=== PATIENT | female | born 1975 | race African-American/Black ===

== ENCOUNTER 2020-03-08 21:28 | Emergency (ER) | payer OTHER, SELFPAY ==
--- OUTSIDE RECORDS SUMMARY | 2020-03-08 21:31 | XMS REPORT | Clinical Summary ---
:1975 Author Organization [facility] Address [address] [place] [address] Care Team Providers Name Role Phone Unavailable Primary Care Provider Unavailable Allergies Active Allergy Reactions Severity Noted Date Comments Penicillins Rash Low 05/06/2018 Vancomycin Analogues Rash High 05/06/2018 Medications Medication Sig Dispensed Refills Start Date End Date Status lisinopril Take 20 mg by mouth 0 Active (PRINIVIL,ZESTRIL) daily. 20 MG tablet cyanocobalamin INJECT 1 ML 11 04/15/2018 Ac tive (VITAMIN B-12) 1,000 INTRAMUSCULARLY 1 mcg/mL injection TIME EVERY MONTH insulin NPH (HUMULIN Inject 20 Units 10 mL 0 05/07/2018 Active N) 100 unit/mL subcutaneously every injection morning Use as directed . Active Problems Problem Noted Date Drug overdose 05/06/2018 Social History Tobacco Use Types Packs/Day Years Used Date Never Smoker Smokeless Tobacco: Never Used Alcohol Use Drinks/Week oz/Week Comments Yes occassionally Sex Assigned at Date Recorded Not on file Last Filed Vital Signs Not on file Plan of Treatment Health Maintenance Due Date Last Done Comments CERVICAL CANCER SCREENING PAP ONLY (Age 0811/11/1995 21-65) LIPID PANEL 11/11/2019 INFLUENZA VACCINE (#1) 2019 01/29/2018, 03/18/2017 Results Not on fileafter 03/08/2019 Advance Directives For more information, please contact: [phone] Code Status Date Activated Date Inactivated Comments Full Code 05/06/2018 9:19 PM This code status was determined by: Patient
--- OUTSIDE RECORDS SUMMARY | 2020-03-08 21:32 | XMS REPORT | Continuity of Care Document ---
:1975 Author Organization [facility] t Address [address] [place] [address] Care Team Providers Name Role Phone JOYCE CAMPBELL Attending Clinician Unavailable JOYCE CAMPBELL Admitting Clinician Unavailable Problems Condition Condition Condition Status Onset Resolution Last Treating Co mments Source Name Details Category Date Date Treatment Clinician Date Drug Drug Disease Active [facility] Allergies, Adverse Reactions, Alerts Allergy Allergy Status Severity Reaction(s) Onset Inactive Treating Comm ents Source Name Type Date Date Clinician Penicill Propensi Active Rash [facility] - adverse 00:00: Medical reaction 00 Gar[facility] s Vancomyc Propensi Active Rash [facility] - Analogue adverse 00:00: Medical s reaction 00 Center s Social History Social Habit Start Date Stop Date Quantity Comments Source Sex Assigned At [facility] Tobacco use and 2018-05-06 2018-05-06 Never used [facility] exposure 00:00:00 00:00:00 [facility] Alcohol intake 2018-05-06 2018-05-06 [facility] - 00:[facility]00 00:00:00 alcohol (finding) [facility] Alcohol Comment 2018-05-06 2018-05-[address] [facility] - 00:00:00 00:00:00 [facility] Smoking Status Start Date Stop Date Source Never smoker [facility] Medications Ordered Filled Start Stop Current Ordering Indication Dosage Frequency Signature Comments Components Source Medication Medication Date Date Medication? Clinician (SIG) Name Name lisinopril 2019-0 Yes 20mg QD Take [address] (PRINIVIL,Z 2-01 by mouth [facility] - ESTRIL) 20 02:55: daily. Medic al MG tablet Center insulin NPH Yes 20U QD Inject [address] (HUMULIN N) 1-31 Units [facility] - 100 unit/mL 00:00: subcutaneo Medical injection 00 usly every Cent er morning Use as directed . cyanocobala Yes INJECT [address] min 1-09 ML [facility] - (VITAMIN 00:00: INTRAMUSCU Med ical B-12) 1,000 00 LARLY 1 Cente r mcg/mL TIME EVERY injection MONTH Procedures This patient has no known procedures. Plan of Care Planned Activity Planned Date Details Comments Source Future Scheduled 2019-12-[address] [facility] - Test 00:00:00 (#1) [code = [facility] INFLUENZA VACCINE (#1)] Future Scheduled 2019-11-[address] [facility] - Test 00:00:00 (procedure) [code = [facility] [id number]] Future Scheduled 1995-11-[address] [facility] [facility] - Test 00:00:00 malignant neoplasm Medical C enter of cervix (procedure) [code = 414076311] Results Test Description Test Time Test Comments Results Result Comments Source PROTEIN ELECTROPHORESIS, SERUM 2018-05-08 15:56:00 Test Item Value Reference Range Interpretation Comme nts ALBUMIN FRACTION (BEAKER) (test code 3.1 g/dL 3.5-5.5 L = 405) ALPHA 1 FRACTION (BEAKER) (test code 0.2 g/dL 0.2-0.4 = 389) ALPHA 2 FRACTION (BEAKER) (test code 0.8 g/dL 0.5-0.9 = 390) BETA FRACTION (BEAKER) (test code = 1.1 g/dL 0.6-1.1 392) GAMMA GLOBULIN FRACTION (BEAKER) 1.9 g/dL 0.7-1.7 H (test code = 391) INTERPRETATION-119 (BEAKER) (test Slight decrease in albumin. Small code = 2611) polyclonal elevation of gamma globulins, suggesting a component of chronic inflammation. No monoclonal bands detected. [id number] (BEAKER) (test Viviane Zuluaga MD (electro ayaka code = 2616) signature) PROTEIN TOTAL SERUM, SPEP ([facility]) 7.1 gm/dL 6.0-8.3 (test code = 2660) POCT-GLUCOSE [id number] 21:51:00 Test Item Value Reference Range Interpretation Comments POC-GLUCOSE METER 108 mg/dL 70-110 TESTED AT [facility] [address] ([facility]) (test code = [address] [place] 1538) [id number] POCT-GLUCOSE [id number] 18:23:00 Test Item Value Reference Range Interpretation Comments POC-GLUCOSE METER 117 mg/dL 70-110 H TESTED AT [facility] [address] ([facility]) (test code = [address] [place] 1538) [id number] EEG AWAKE AND [id number] 14:13:00Reason for exam:->new onset seizureShould this be performed at the bedside?->YesDATE OF REPORT: 05/07/2018NAME: Israel GonzalezMRN: [id number] of : 1975ACC: [id number]: [id number] time: 9:17Stop time: 9:39ICD-10: R56.9 CPT Code: 76927 HISTORY: Israel Gonzalez is a 42 y.o. female with history of prior drug overdose, DM, HTN, s/p episode of generalized shaking x 1 minute MEDICATIONS THAT COULD AFFECT EEG: None TECHNICAL SUMMARY: This is a digital EEG recorded with 32 input channels on a Carbon Digital system, reviewed with bipolar and referential montages using the modified combinatorial system nomenclature. DESCRIPTION OF RECORD: During the maximally alert state, a 9-10 Hz posterior dominant rhythm was seen that was symmetric, reactive to eye opening and well regulated. More anteriorly, low voltage frontocentral beta predominated. Drowsiness was characterized byalpha attenuation and increased frontocentral theta. Stage 2 sleep was reached characterized by symmetric sleep spindles. HV: Hyperventilation was performed for 3 minutes with good effort. No changewas seen with HV. PHOTIC STIMULATION: Photic stimulation was done from 3-18 Hz; photoparoxysmal responses were absent. ELECTROCARDIOGRAM: EKG tracing reviewed, showing normal sinus rhythm with occasional PVC's. IMPRESSION: Normal awake and asleep EEG CLINICAL CORRELATION: An EEG without epileptiform discharges does not exclude the possibility of epilepsy. If the clinical suspicion of epilepsy remains, consider additional EEG recordings. Brianda Dang MD, PhDEpilepsy Fellow Attending note: I reviewed this EEG record and I agree with the details of this report.Jessica Rich MD, PhDAttending Neur ophysiologistDublin, [place] POCT- GLUCOSE [id number] 12:34:00 Test Item Value Reference Range Interpretation Comments POC-GLUCOSE METER 129 mg/dL 70-110 H TESTED AT [facility] [address] (BEAKER) (test code = [facility] 1538) [id number] POCT-GLUCOSE [id number] 08:39:00 Test Item Value Reference Range Interpretation Comments POC-GLUCOSE METER 161 mg/dL 70-110 H TESTED AT [facility] [address] (BEAKER) (test code = [facility] 1538) [id number] HEMOGLOBIN [id number] 07:52:00 Test Item Value Reference Range Interpretation Comments HEMOGLOBIN A1C (BEAKER) (test code = 5.5 % 4.3-6.1 368) ACETAMINOPHEN [id number] 04:37:00 Test Item Value Reference Range Interpretation Comments ACETAMINOPHEN LEVEL (BEAKER) (test < ug/mL 10.0-30.0 L code = 344) Therapeutic Range: 10.0-30.0 g/mLToxic Levels: >200.0 g/mLPROTHROMBIN [id number] 04:32:00 Test Item Value Reference Range Interpretation Comments PROTIME (BEAKER) (test code = 14.1 seconds 11.7-14.7 759) INR (BEAKER) (test code = 370) 1.1 <=5.9 RECOMMENDED COUMADIN/WARFARIN INR THERAPY RANGESSTANDARD DOSE: 2.0 - 3.0 Includes: PROPHYLAXIS forvenous thrombosis, systemic embolization; TREATMENT for venous thrombosis and/or pulmonary embolus.HIGH RISK: Target INR is 2.5-3.5 for patients with mechanical heart valves.BASIC METABOLIC [id number] 04:29:00 Test Item Value Reference Range Interpretation Comments SODIUM (BEAKER) 137 meq/L 136-145 (test code = 381) POTASSIUM (BEAKER) 3.4 meq/L 3.5-5.1 L (test code = 379) CHLORIDE (BEAKER) 106 meq/L 98-107 (test code = 382) CO2 (BEAKER) (test 23 meq/L 22-29 code = 355) BLOOD UREA NITROGEN 6 mg/dL 7-21 L (BEAKER) (test code = 354) CREATININE (BEAKER) 0.67 mg/dL 0.57-1.25 (test code = 358) GLUCOSE RANDOM 188 mg/dL 70-105 H (BEAKER) (test code = 652) CALCIUM (BEAKER) 9.2 mg/dL 8.4-10.2 (test code = 697) EGFR (BEAKER) (test mL/min/1.73 INSUFFIC IENT CLINICAL code = 1092) sq m DATA TO CALCULA TE ESTIMATED GFR. [id number] 04:28:00 Test Item Value Reference Range Interpretation Comments PHOSPHORUS (BEAKER) (test code = 2.4 mg/dL 2.3-4.7 604) [id number] 04:28:00 Test Item Value Reference Range Interpretation Comments MAGNESIUM (BEAKER) (test code = 2.0 mg/dL 1.6-2.6 627) HEPATIC FUNCTION [id number] 04:28:00 Test Item Value Reference Range Interpretation Comments TOTAL PROTEIN (BEAKER) (test code = 7.5 gm/dL 6.0-8.3 770) ALBUMIN (BEAKER) (test code = 1145) 3.7 g/dL 3.5-5.0 BILIRUBIN TOTAL (BEAKER) (test code 0.5 mg/dL 0.2-1.2 = 377) BILIRUBIN DIRECT (BEAKER) (test 0.2 mg/dL 0.1-0.5 code = 706) ALKALINE PHOSPHATASE (BEAKER) (test 69 U/L 40-150 code = 346) AST (SGOT) (BEAKER) (test code = 7 U/L 5-34 353) ALT (SGPT) (BEAKER) (test code = 7 U/L 6-55 347) CBC W/PLT COUNT & AUTO [id number] 04:15:00 Test Item Value Reference Range Interpretation Comments WHITE BLOOD CELL COUNT (BEAKER) 9.8 K/ L 3.5-10.5 (test code = 775) RED BLOOD CELL COUNT (BEAKER) 4.33 M/ L 3.93-5.22 (test code = 761) HEMOGLOBIN (BEAKER) (test code = 11.1 GM/DL 11.2-15.7 L 410) HEMATOCRIT (BEAKER) (test code = 32.5 % 34.1-44.9 L 411) MEAN CORPUSCULAR VOLUME (BEAKER) 75.1 fL 79.4-94.8 L (test code = 753) MEAN CORPUSCULAR HEMOGLOBIN 25.6 pg 25.6-32.2 (BEAKER) (test code = 751) MEAN CORPUSCULAR HEMOGLOBIN CONC 34.2 GM/DL 32.2-35.5 (BEAKER) (test code = 752) RED CELL DISTRIBUTION WIDTH 17.7 % 11.7-14.4 H (BEAKER) (test code = 412) PLATELET COUNT (BEAKER) (test 321 K/CU MM 150-450 code = 756) MEAN PLATELET VOLUME (BEAKER) 10.8 fL 9.4-12.3 (test code = 754) NUCLEATED RED BLOOD CELLS 0 /100 WBC 0-0 (BEAKER) (test code = 413) NEUTROPHILS RELATIVE PERCENT 71 % (BEAKER) (test code = 429) LYMPHOCYTES RELATIVE PERCENT 18 % (BEAKER) (test code = 430) MONOCYTES RELATIVE PERCENT 10 % (BEAKER) (test code = 431) EOSINOPHILS RELATIVE PERCENT 1 % (BEAKER) (test code = 432) BASOPHILS RELATIVE PERCENT 0 % (BEAKER) (test code = 437) NEUTROPHILS ABSOLUTE COUNT 6.98 K/ L 1.56-6.13 H (BEAKER) (test code = 670) LYMPHOCYTES ABSOLUTE COUNT 1.75 K/ L 1.18-3.74 (BEAKER) (test code = 414) MONOCYTES ABSOLUTE COUNT (BEAKER) 0.95 K/ L 0.24-0.36 H (test code = 415) EOSINOPHILS ABSOLUTE COUNT 0.07 K/ L 0.04-0.36 (BEAKER) (test code = 416) BASOPHILS ABSOLUTE COUNT (BEAKER) 0.03 K/ L 0.01-0.08 (test code = 417) IMMATURE GRANULOCYTES-RELATIVE 0 % 0-1 PERCENT (BEAKER) (test code = 2801) RAPID DRUG SCREEN, [id number] 00:32:00 Test Item Value Reference Range Interpretation Comments BARBITURATE URINE (BEAKER) (test Negative Negative code = 725) BENZODIAZEPINE SCREEN URINE (BEAKER) Negative Negative (test code = 726) COCAINE (METAB.) SCREEN (BEAKER) Negative Negative (test code = 1164) METHADONE SCREEN (BEAKER) (test code Negative Negative = 1436) OPIATE SCREEN URINE (BEAKER) (test Negative Negative code = 734) CANNABINOID SCREEN URINE (BEAKER) Negative Negative (test code = 727) AMPH/METHAMPH SCREEN (BEAKER) (test Negative Negative code = 1438) PHENCYCLIDINE SCREEN URINE (BEAKER) Negative Negative (test code = 608) OXYCODONE SCREEN URINE (BEAKER) Negative Negative (test code = 2761) DRUG CUTOFF CONC.Cocaine 300 ng/mL Cannabinoid 50 ng/mL Benzodiazepine 200 ng/mLBarbiturate 200 ng/mLPhencyclidine 25 ng/mLOpiate 300 ng/mLMethadone 300 ng/mLAmphetamine/ 1000 ng/mL MethamphetamineOxycodone 300 ng/mLThis assay provides an unconfirmed qualitative test result for the clinical management of patients in emergency situations. Chain of custody not maintained. Some gqph-noe-bnpeulg medications, as well as adulterants, may cause inaccurate results. Clinical correlation should be applied. A more comprehensive drug screen or confirmation of a detected drug may be performed upon request. SCREEN, [id number] 00:28:00 Test Item Value Reference Range Interpretation Comments TEST URINE (BEAKER) (test Negative code = 583) URINALYSIS W/ REFLEX URINE [id number] 00:28:00 Test Item Value Reference Range Interpretation Comments COLOR (BEAKER) (test code = 470) Yellow CLARITY (BEAKER) (test code = 469) Hazy SPECIFIC GRAVITY UA (BEAKER) (test 1.023 1.001-1.035 code = 468) PH UA (BEAKER) (test code = 467) 5.5 5.0-8.0 PROTEIN UA (BEAKER) (test code = 70 mg/dL Negative A 464) GLUCOSE UA (BEAKER) (test code = 50 mg/dL Negative A 365) KETONES UA (BEAKER) (test code = Trace Negative A 371) BILIRUBIN UA (BEAKER) (test code = Negative Negative 462) BLOOD UA (BEAKER) (test code = Negative Negative 461) NITRITE UA (BEAKER) (test code = Negative Negative 465) LEUKOCYTE ESTERASE UA (BEAKER) Negative Negative (test code = 466) UROBILINOGEN UA (BEAKER) (test 0.2 mg/dL 0.2-1.0 code = 463) RBC UA (BEAKER) (test code = 519) 1 /HPF WBC UA (BEAKER) (test code = 520) 2 /HPF MUCUS (BEAKER) (test code = 1574) Occasional SQUAMOUS EPITHELIAL (BEAKER) (test 3 /HPF code = 516) AMORPHOUS CRYSTALS (BEAKER) (test Occasional code = 1584) SOURCE(BEAKER) (test code = 2795) POCT-GLUCOSE [id number] 21:55:00 Test Item Value Reference Range Interpretation Comments POC-GLUCOSE METER 177 mg/dL 70-110 H TESTED AT [facility] [address] (BEAKER) (test code = [address] 1538) [id number]
[2020-03-08] MEDS ORDERED: DIAZEPAM 10 MG/2 ML INJ SYRINGE ONE (22:43)
[2020-03-08] MEDS ORDERED: LORazepam 2 MG/ML VIAL ONE (22:46)
[2020-03-08 22:54] LABS: ALT/SGPT 13 U/L (12-78); AST/SGOT 6 U/L (15-37); Albumin 4.3 g/dL (3.4-5.0); Alkaline Phosphatase 84 U/L (45-117); BUN Blood Urea Nitrogen 14 mg/dL (7-18); Bicarbonate 20 mmol/L (21-32); Bilirubin Direct < 0.1 mg/dL (0-0.2); Bilirubin Total 0.6 mg/dL (0.2-1.0); Glucose Level 216 mg/dL (74-106); Potassium 3.2 mmol/L (3.5-5.1); Protein, Total 9.6 g/dL (6.4-8.2); Sodium Level 138 mmol/L (136-145)
[2020-03-09 03:58] LABS: Absolute Lymphocytes (CBC) 2.6 K/uL (0.7-4.9); Basophils % 0.7 % (0-1.3); Hematocrit 37.9 % (36.0-45.0); Lymphocytes % 24.7 % (15.3-44.8); MPV 9.5 fL (7.6-11.3); RBC Red Blood Cell Count 4.59 M/uL (3.86-4.86)
[2020-03-09 03:59] LABS: Protime INR 1.13
[2020-03-09 04:05] LABS: Barbiturates NEGATIVE (NEGATIVE); Benzodiazepines POSITIVE (NEGATIVE); Cocaine NEGATIVE (NEGATIVE); METHAMPHETAM NEGATIVE (NEGATIVE); Methadone NEGATIVE (NEGATIVE); Opiates NEGATIVE (NEGATIVE); Phencyclidine NEGATIVE (NEGATIVE); THC Cannibis NEGATIVE (NEGATIVE)
[2020-03-09] MEDS ORDERED: POTASSIUM 25 MEQ EFFERV TAB ONE (04:52)
--- NOTE | 2020-03-09 06:07 | EKG ---
Test Date: 2020-03-08 Test Time: 22:23:32 Insurance Account Specialist: JENNIFER MEASUREMENT RESULTS: Intervals: Rate: 112 ME: 126 QRSD: 132 QT: 380 QTc: 518 Howe: P: 63 ME: 126 QRS: 199 T: 27 INTERPRETIVE STATEMENTS: Sinus tachycardia with premature atrial complexes with aberrant conduction Right atrial enlargement Right bundle branch block Abnormal ECG Compared to ECG 07/19/2014 23:03:42 Atrial premature complex(es) now present Aberrant conduction of supraventricular beat(s) now present Right bundle-branch block now present Myocardial infarct finding no longer present Electronically Signed On 03-09-20 06:07:12 P 3 ARMAMENT/ORDNANCE IMA TECHNICIAN by Jose Juan Mon
[2020-03-09 06:34] LABS: Urine Blood NEGATIVE (NEG); Urine Glucose TRACE (NEG); Urine Protein 3+ (NEG); Urine Specific Gravity >1.030 (1.005-1.030)
[2020-03-09 06:34] LABS: Urine Specific Gravity >1.030 (1.005-1.030)
[2020-03-09] MEDS ORDERED: METFORMIN HCL 500 MG TAB ONE (07:42)
[2020-03-09] MEDS ORDERED: ZIPRASIDONE MESYLA 20 MG/VIAL IM ONE (11:33)
[2020-03-09] MEDS ORDERED: WATER FOR INJ,STERILE 10 ML ONE (11:33)
[2020-03-09] MEDS ORDERED: LORazepam 2 MG/ML VIAL ONE (16:33)
--- NOTE | 2020-03-10 06:19 | EDPHYS ---
Physician Documentation [facility] Name: Israel Adorno Age: 44 yrs Sex: Female : 1975 Arrival Date: 03/08/2020 Time: 21:35 Bed 5 Private MD: ED Physician Darren Kelley HPI: 03/08 22:20 This 44 yrs old Black Female presents to ER via EMS with complaints of Auditory and mh7 Visual hallucinations. 22:20 The patient presents to the emergency department with psychosis, has experienced mh7 auditory hallucinations, has experienced visual hallucinations. 22:21 Onset: The symptoms/episode began/occurred 1 week(s) ago. Past psychiatric history: mh7 Prior diagnosis: bipolar disorder, schizophrenia, Psychiatric medications include: Primary psychiatric physician: the patient's psychiatric physician is not known, it is unknown whether or not the patient has had a prior suicide gesture, the patient has a previous inpatient psychiatric history, the patient's last psychiatric treatment was last year. Associated signs and symptoms: Pertinent positives; anxiety, hallucinations, Pertinent negatives: abdominal pain, chest pain, chills, delusions, depression, fever, headache, homicidal ideation, nausea, night sweats, palpitations, paranoia, shortness of breath, substance abuse, suicide ideation, tremor, vomiting. Severity of symptoms: At their worst the symptoms were moderate today, in the emergency department the symptoms are unchanged. 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 - Social history:: Smoking status: unknown. ROS: 22:21 Constitutional: Negative for fever, chills, and weight loss, Eyes: Negative for injury, mh7 pain, redness, and discharge, ENT: Negative for injury, pain, and discharge, Neck: Negative for injury, pain, and swelling, Cardiovascular: Negative for chest pain, palpitations, and edema, Respiratory: Negative for shortness of breath, cough, wheezing, and pleuritic chest pain, Abdomen/GI: Negative for abdominal pain, nausea, vomiting, diarrhea, and constipation, Back: Negative for injury and pain, : Negative for injury, bleeding, discharge, and swelling, MS/Extremity: Negative for injury and deformity, Skin: Negative for injury, rash, and discoloration, Neuro: Negative for headache, weakness, numbness, tingling, and seizure, Allergy/Immunology: Negative for hives, rash, and allergies, Endocrine: Negative for neck swelling, polydipsia, polyuria, polyphagia, and marked weight changes, Hematologic/Lymphatic: Negative for swollen nodes, abnormal bleeding, and unusual bruising. Exam: 22:21 Head/Face: Normocephalic, atraumatic. Eyes: Pupils equal round and reactive to light, mh7 extra-ocular motions intact. Lids and lashes normal. Conjunctiva and sclera are non-icteric and not injected. Cornea within normal limits. Periorbital areas with no swelling, redness, or edema. Neck: Trachea midline, no thyromegaly or masses palpated, and no cervical lymphadenopathy. Supple, full range of motion without nuchal rigidity, or vertebral point tenderness. No Meningismus. Chest/axilla: Normal chest wall appearance and motion. Nontender with no deformity. No lesions are appreciated. Cardiovascular: Regular rate and rhythm with a normal S1 and S2. No gallops, murmurs, or rubs. Normal PMI, no JVD. No pulse deficits. Respiratory: Lungs have equal breath sounds bilaterally, clear to auscultation and percussion. No rales, rhonchi or wheezes noted. No increased work of breathing, no retractions or nasal flaring. Abdomen/GI: Soft, non-tender, with normal bowel sounds. No distension or tympany. No guarding or rebound. No evidence of tenderness throughout. Back: No spinal tenderness. No costovertebral tenderness. Full range of motion. Skin: Warm, dry with normal turgor. Normal color with no rashes, no lesions, and no evidence of cellulitis. MS/ Extremity: Pulses equal, no cyanosis. Neurovascular intact. Full, normal range of motion. Neuro: Awake and alert, GCS 15, oriented to person, place, time, and situation. Cranial nerves II-XII grossly intact. Motor strength 5/5 in all extremities. Sensory grossly intact. Cerebellar exam normal. Normal gait. 22:21 Constitutional: The patient appears in no acute distress, alert, awake, anxious. 22:21 Psych: Behavior/mood is cooperative, anxious, Affect is flat, Oriented to person, place, time, Patient has no thoughts/intents to harm self or others. Judgement / Insight is normal. Memory is normal. Delusions/hallucinations are present and described as Hearing voice of her sister and seeing people and objects. Vital Signs: 21:35 BP 191 / 113; Pulse 104; Resp 20; Temp 97.9; Pulse Ox 100% on R/A; Pain 0/10; zb 12 07:16 BP 156 / 92; Pulse 94; Resp 17; Pulse Ox 100% ; Pain 0/10; jl7 MDM: 07:27 Data reviewed: vital signs, nurses notes, lab test result(s). Counseling: I had a kdr detailed discussion with the patient and/or guardian regarding: the historical points, exam findings, and any diagnostic results supporting the discharge/admit diagnosis, lab results, the need to transfer to another facility. 11:36 ED course: The patient was becoming increasingly paranoid and hallucinations. She was kdr diaphoretic and appears exopthalmic. She was seeing/feeling the bed move and then she was seeing people in the hallway who were not there. She agreed to take Geodon 20 mg IM without difficulty. 03/10 06:14 ED course: Patient feeling better. Want to go home. Patient said she is not suicidal. pkl Will follow up with [facility] as outpatient. Advised to return if necessary. Patient understood instructions. 06:18 Patient medically screened. pkl 03/08 22:09 Order name: Acetaminophen z 03/08 22:09 Order name: Basic Metabolic Panel; Complete Time: 00:38 zb 03/08 22:09 Order name: CBC with Diff; Complete Time: 04:38 zb 03/08 22:09 Order name: ETOH Level; Complete Time: 00:38 zb 03/08 22:09 Order name: Hepatic Function; Complete Time: 00:38 zb 03/08 22:09 Order name: PT-INR; Complete Time: 04:38 zb 03/08 22:09 Order name: Ptt, Activated; Complete Time: 04:38 zb 03/08 22:09 Order name: Salicylate; Complete Time: 19:08 zb 03/08 22:09 Order name: Urine Drug Screen; Complete Time: 04:38 zb 03/08 22:09 Order name: Acetaminophen Level; Complete Time: 00:38 EDMS 03/09 03:38 Order name: Urine --Ancillary (enter results); Complete Time: 07:15 tt3 03/09 03:38 Order name: Urine Dipstick--Ancillary (enter results); Complete Time: 07:15 tt3 03/10 03:03 Order name: COVID-19 rv 03/08 22:09 Order name: EKG; Complete Time: 22:10 zb 03/08 22:09 Order name: EKG - Nurse/Tech; Complete Time: 22:30 zb 03/08 22:09 Order name: IV Saline Lock; Complete Time: 22:30 zb 03/08 22:09 Order name: Labs collected and sent; Complete Time: 22:30 zb 03/08 22:09 Order name: Urine Dipstick-Ancillary (obtain specimen); Complete Time: 03:38 zb 03/09 07:16 Order name: Diet Ada 2000 Edy; Complete Time: 07:17 jl7 03/09 16:23 Order name: Diet Ada 1800 Edy; Complete Time: 16:24 aa5 03/10 05:38 Order name: SARS-COV-2 RT PCR; Complete Time: 06:19 EDMS Administered Medications: 03/08 22:40 Drug: Ativan 1 mg Route: IVP; Site: right antecubital; zb 23:40 Follow up: Response: No adverse reaction; RASS: Alert and Calm (0) ll2 03/09 04:42 Drug: Potassium Effervescent Tablet 50 mEq Route: PO; ea 07:00 Follow up: Response: No adverse reaction jl7 07:30 Drug: metFORMIN 500 mg Route: PO; jl7 08:00 Follow up: Response: No adverse reaction jl7 11:27 Drug: Geodon 20 mg Route: IM; Site: right deltoid; jl7 12:00 Follow up: Response: No adverse reaction; Marked relief of symptoms jl7 16:35 Drug: Ativan 2 mg Route: IVP; Site: right antecubital; jl7 Disposition: 03/10/20 06:18 Discharged to Home. Impression: Bipolar disorder. - Condition is Stable. - Medication Reconciliation Form, Thank You Letter, Antibiotic Education, Prescription Opioid Use form. - Follow up: Private Physician; When: 2 - 3 days; Reason: Re-evaluation by your physician. - Problem is new. - Symptoms have improved. Signatures: Dispatcher [employer] EDMS Darren Kelley MD MD pkl Rittger, Kevin, MD MD kdr Williams, Irene RN RN Sohail Fair RN RN jl7 Nirmala Landeros RN Dilip Howe ea, MD MD mh7 Nina Sharp RN RN zb Linscombe, Lacie RN ll2 Corrections: (The following items were deleted from the chart) 03/10 04:11 03:03 CORONAVIRUS ordered. EDWY EDWY 07:10 06:18 03/10/2020 06:18 Discharged to Home. Impression: Bipolar disorder. Condition is iw Stable. Forms are Medication Reconciliation Form, Thank You Letter, Antibiotic Education, Prescription Opioid Use. Follow up: Private Physician; When: 2 - 3 days; Reason: Re-evaluation by your physician. Problem is new. Symptoms have improved. pkl
--- NOTE | 2020-03-10 06:19 | ER ---
Nurse's Notes [facility] Name: Israel Adorno Age: 44 yrs Sex: Female : 1975 Arrival Date: 03/08/2020 Time: 21:35 Bed 5 Private MD: Diagnosis: Bipolar disorder Presentation: 03/08 21:35 Chief complaint: EMS states: patient found at [facility] states that she was hearing voices zb in her head. hx of schizophrenia, denies SOB, currently on menes. Coronavirus screen: Client denies travel out of the [place] in the last 14 days. Ebola Screen: No symptoms or risks identified at this time. Initial Sepsis Screen: Does the patient meet any 2 criteria? No. Patient's initial sepsis screen is negative. Does the patient have a suspected source of infection? No. Patient's initial sepsis screen is negative. Risk Assessment: Do you want to hurt yourself or someone else? Patient reports no desire to harm self or others. 21:35 Method Of Arrival: EMS: [facility] zb 21:35 Acuity: YENY 3 zb Triage Assessment: 22:02 General: Appears uncomfortable, unkempt, Behavior is quiet. 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 - Social history:: Smoking status: unknown. Screenin:35 Abuse screen: Denies threats or abuse. Denies injuries from another. Nutritional zb screening: No deficits noted. Tuberculosis screening: No symptoms or risk factors identified. Fall Risk No fall in past 12 months (0 pts). No secondary diagnosis (0 pts). IV access (20 points). Ambulatory Aid- None/Bed Rest/Nurse Assist (0 pts). Gait- Normal/Bed Rest/Wheelchair (0 pts) Mental Status- Oriented to own ability (0 pts). Total Ring Fall Scale indicates No Risk (0-24 pts). Assessment: 21:35 General: Appears in no apparent distress. uncomfortable, unkempt, Behavior is agitated, zb anxious. Pain: Denies pain. Neuro: Level of Consciousness is awake, alert, obeys commands, Oriented to person, place, time, situation, Reports auditory and visual disturbances. Cardiovascular: Capillary refill < 3 seconds in bilateral fingers Patient's skin is warm and dry. Respiratory: Airway is patent Respiratory effort is even, unlabored, Respiratory pattern is regular. GI: No signs and/or symptoms were reported involving the gastrointestinal system. : Reports currently on menstrual cycle. EENT: No signs and/or symptoms were reported regarding the EENT system. Derm: No signs and/or symptoms reported regarding the dermatologic system. Skin is intact, is healthy with good turgor, Skin is normal. Musculoskeletal: Circulation, motion, and sensation intact. Range of motion: intact in all extremities. 22:52 Reassessment: REPORT RECEIVED FROM CAROLYNE. rv 03/09 00:00 Reassessment: Patient and/or family updated on plan of care and expected duration. Pain ll2 level reassessed. Patient is alert, oriented x 3, equal unlabored respirations, skin warm/dry/pink. 01:20 Reassessment: Patient and/or family updated on plan of care and expected duration. Pain ll2 level reassessed. Patient is alert, oriented x 3, equal unlabored respirations, skin warm/dry/pink. 04:10 Reassessment: No changes from previously documented assessment. Patient and/or family ll2 updated on plan of care and expected duration. Pain level reassessed. Patient is alert, oriented x 3, equal unlabored respirations, skin warm/dry/pink. pt sleeping in bed. 06:00 Reassessment: [facility] at bedside doing assessment. ll2 07:17 Reassessment: Patient appears in no apparent distress at this time. Patient and/or jl7 family updated on plan of care and expected duration. Pain level reassessed. Patient is alert, oriented x 3, equal unlabored respirations, skin warm/dry/pink. Denies auditory and visual hallucinations at this time. Patient denies pain at this time. 07:20 Reassessment: Pt takes 500 mg Metformin BID, ERD notified and gave VO for morning dose. jl7 Pt also takes lisinopril and amlodipine, unknown dose, uses [facility] pharmacy in [place] which opens at 0900. 09:00 Reassessment: No changes from previously documented assessment. Patient and/or family jl7 updated on plan of care and expected duration. Pain level reassessed. Pt sitting on bed, denies discomfort at this time, no signs of distress noted, will continue to monitor. 10:38 Reassessment: Pt talking to brother on the phone, attempting to get brother to come jl7 pick her up. Pt denies SI, HI, denies visual and auditory hallucinations. Brother reports he does not feel comfortable with coming to get her, states "I'm going out of town and with the state she was in last night I don't think it's safe for her to be at my house by herself." ERD notified. BrotherGerald [phone]. 11:44 Reassessment: Pt appears to be getting agitated, continually requesting to go with her jl7 brother. ERD notified and to bedside. Dr. Chapin assessing pt, pt appears paranoid, states "The bed keeps moving." Pt states "I see a face in the sheets." Pt reports she wants to go to her brothers house because she feels safe there. Pt's noted with a mild tremor and diaphoretic. Pt agrees being medicated to reduce anxiety and agitation. Dr. Chapin gave VO for 20 mg Geodon IM. Pt medicated as ordered and moved to ER room 5 due to TV not working in ER room 8. 13:00 Reassessment: Reassessment: Pt sitting in bed, watching TV, respirations even and jl7 unlabored, no signs of distress noted at this time. 14:00 Reassessment: Pt laying in bed with eyes closed, respirations even and unlabored, no jl7 signs of distress noted at this time. 16:30 Reassessment: Pt's brother, Gerald Adorno, at bedside with pt belongings. Pt refusing jl7 to send belongings to security. Security at bedside, pt appears to be getting increasingly more agitated, pt's brother attempting to explain the policy, pt not understanding. ERD notified, VO for 2 mg Ativan IVP, medicated as ordered. 17:30 Reassessment: Pt sitting in bed watching TV, appears to be more calm, no signs of jl7 distress noted, will continue to monitor. 19:00 Reassessment: Patient and/or family updated on plan of care and expected duration. Pain ll2 level reassessed. Patient is alert, oriented x 3, equal unlabored respirations, skin warm/dry/pink. 21:39 Reassessment: pt requests phone and belongings, states to dr she wants to go home. ll2 22:40 Reassessment: Patient and/or family updated on plan of care and expected duration. Pain ll2 level reassessed. Patient is alert, oriented x 3, equal unlabored respirations, skin warm/dry/pink. pt given apple juice from [employer]. 03/10 02:00 Reassessment: Patient and/or family updated on plan of care and expected duration. Pain ea level reassessed. Patient is alert, oriented x 3, equal unlabored respirations, skin warm/dry/pink. 04:12 Reassessment: pt became anxious and states she is ready to leave and needs to get out ll2 of here. she tried calling her brother but was not able to talk to her at the moment. states she is seeing visions of her sister inside her hospital room and does not want to stay in there any longer. 06:25 Reassessment: pt states she wants to leave, very anxious, ERD says shes okay to go ll2 home, but not without a ride to pick her up. pt notified. Vital Signs: 03/08 21:35 BP 191 / 113; Pulse 104; Resp 20; Temp 97.9; Pulse Ox 100% on R/A; Pain 0/10; zb 03/09 07:16 BP 156 / 92; Pulse 94; Resp 17; Pulse Ox 100% ; Pain 0/10; jl7 ED Course: 03/08 21:30 Arm band placed on. zb 21:30 Patient has correct armband on for positive identification. Bed in low position. Call zb light in reach. Side rails up X 1. Door closed. Noise minimized. 21:35 Patient arrived in ED. jd3 21:35 Nina Sharp RN is Primary Nurse. zb 21:35 Dilip Cardona MD is Attending Physician. mh7 21:57 Triage completed. zb 22:40 Inserted saline lock: 20 gauge in right antecubital area, using aseptic technique. zb 03/09 02:00 Straight cath inserted, using sterile technique, 16 Fr. Specimen obtained. Returned ll2 clear yellow urine. Patient tolerated. 06:51 Faxed pt chart to initiate transfers with the following facilities for pt placement: [facility], [facility], [facility], [facility], [facility], [facility], [facility], [facility], [facility] and [facility]. [facility] does not currently have any beds per the [facility] Er screener. 07:15 Attending Physician role handed off by Dilip Cardona MD kdr 07:15 Hakeem Chapin MD is Attending Physician. kdr 07:29 Primary Nurse role handed off by Nina Sharp RN jl7 07:29 Sohail Goldberg RN is Primary Nurse. jl7 07:36 [facility] called to notify that they have no beds available. em1 11:42 Fire Alarm Technician contacted [facility] to find out the intake status of em1 this pt. [address] advised that there are no appropriate beds at this time. 15:30 [facility] patient intake contacted for update; message left. em1 17:15 Left a message for Codi Arambula, pt online content coordinator for [facility] placement at [address] 19:07 Attending Physician role handed off by Hakeem Chapin MD pkl 19:07 Darren Kelley MD is Attending Physician. pkl 03/10 06:26 IV discontinued, intact, bleeding controlled, No redness/swelling at site. Pressure ll2 dressing applied. 06:37 Primary Nurse role handed off by Sohail Goldberg, MIREYA eb Administered Medications: 03/08 22:40 Drug: Ativan 1 mg Route: IVP; Site: right antecubital; zb 23:40 Follow up: Response: No adverse reaction; RASS: Alert and Calm (0) ll2 03/09 04:42 Drug: Potassium Effervescent Tablet 50 mEq Route: PO; ea 07:00 Follow up: Response: No adverse reaction jl7 07:30 Drug: metFORMIN 500 mg Route: PO; jl7 08:00 Follow up: Response: No adverse reaction jl7 11:27 Drug: Geodon 20 mg Route: IM; Site: right deltoid; jl7 12:00 Follow up: Response: No adverse reaction; Marked relief of symptoms jl7 16:35 Drug: Ativan 2 mg Route: IVP; Site: right antecubital; jl7 Outcome: 03/10 06:18 Discharge ordered by . pkradha 07:10 Discharged to home ambulatory. iw 07:10 Condition: good 07:10 Discharge instructions given to patient, Instructed on discharge instructions, follow up and referral plans. Demonstrated understanding of instructions, follow-up care. 07:10 Patient left the ED. iw Signatures: Darren Kelley MD MD pkHakeem Gallegos MD MD kdr Williams, Irene, RN RN iw Lauro Nettles em1 Sohail Goldberg RN RN jl7 Nirmala Landeros RN Ry Umanzor ea RN RN jd3 Viviane Taylor Ronaldo RN RN Marcelina Maldonado RN RN ll2 Dilip Cardona MD MD 7 Jayjay Domínguez tt3 Nina Sharp RN RN zb Corrections: (The following items were deleted from the chart) 03/08 23:56 21:35 BP 191 / 113; Pulse 104bpm; Resp 20bpm; Pulse Ox 10% RA; Temp 97.9F; Pain 0/10; zbzb 23:59 23:57 Arm band placed on zb zb
== END 2020-03-10 07:10 | disposition home or self-care (01) ==
LOC: ER 21:28
DX: F31.9 Bipolar disorder, unspecified (principal); Z20.828 Contact with and (suspected) exposure to other viral communicable diseases; I10 Essential (primary) hypertension; Z88.0 Allergy status to penicillin; Z88.3 Allergy status to other anti-infective agents
CPT/HCPCS: 36415; 51702; 80048; 80076; 80320; 80329; 93005; 96372; 96374; 99284; J3360; U0003

== ENCOUNTER 2020-04-23 06:31 | Emergency (ER) | payer OTHER, SELFPAY ==
--- OUTSIDE RECORDS SUMMARY | 2020-04-23 06:33 | XMS REPORT | Clinical Summary ---
:1975 Author Organization [facility] Address [address] [place] [address] Care Team Providers Name Role Phone Unavailable [...] 2019 01/29/2018, 03/18/2017 Results Not on fileafter 04/23/2019 Advance Directives For more information, please contact: [phone] Code Status Date Activated Date Inactivated Comments Full Code 05/06/2018 9:19 PM This code status was determined by: Patient
--- OUTSIDE RECORDS SUMMARY | 2020-04-23 06:34 | XMS REPORT | Continuity of Care Document ---
:1975 Author Organization [facility] t Address [address] [place] [address] Care Team Providers Name Role Phone JOYCE [...] [facility] - adverse 00:00: Medical reaction 00 [facility] Active Rash [facility] - Analogue adverse 00:00: Medical s reaction 00 Center s Social History Social Habit Start Date Stop Date Quantity Comments Source Sex Assigned At [facility] Tobacco use and 2018-05-06 2018-05-06 Never used [facility] kes - exposure 00:00:00 00:00:00 Medical Center Alcohol intake 2018-05-06 2018-05-06 Current drink[facility] - [facility]00:00 alcohol (finding) [facility] Alcohol Comment 2018-05-06 2018-05-[address] [facility] - [facility]00 00[facility]00:00 [facility] Smoking Status Start Date Stop Date Source Never smoker [facility] Medications Ordered Filled Start Stop Current Ordering Indication Dosage Frequency Signature Comments Components Source Medication Medication Date Date Medication? Clinician (SIG) Name Name lisinopril Yes 20mg QD Take [address] (PRINIVIL,Z 2-01 by mouth [facility] - ESTRIL) 20 02:55: daily. Medic al MG tablet 50 Center insulin NPH Yes 20U QD Inject [...] [facility] - Test 00:00:00 (#1) [code = [facility] INFLUENZA VACCINE (#1)] Future Scheduled 2019-11-[address] [facility] - Test 00:00:00 (procedure) [code = [facility] 08815323] Future Scheduled 1995-11-[address] [facility] [facility] - Test 00:00:00 malignant neoplasm Medical C enter of cervix (procedure) [code = 708015182] Results Test Description Test Time Test Comments [...] Slight decrease in albumin. Small code = 8173) polyclonal elevation of gamma globulins, suggesting a component of chronic inflammation. No monoclonal bands detected. [id number] (BEAKER) (test Viviane Zuluaga MD (electro ayaka code = 2616) signature) PROTEIN TOTAL SERUM, SPEP ([facility]) 7.1 gm/dL 6.0-8.3 (test code = 2660) POCT-GLUCOSE [id number] 21:51:00 Test Item Value Reference Range Interpretation Comments POC-GLUCOSE METER 108 mg/dL 70-110 TESTED AT [facility] 6720 ([facility]) (test code = [facility] 1538) [id number] POCT-GLUCOSE [id number] 18:23:00 Test Item Value Reference Range Interpretation Comments POC-GLUCOSE METER 117 mg/dL 70-110 H TESTED AT [facility] 6720 ([facility]) (test code = [facility] 1538) [id number] EEG AWAKE AND [id number] 14:13:00Reason for exam:->new onset seizureShould this be performed at the bedside?->YesDATE OF REPORT: 05/07/2018NAME: Israel GonzalezMRN: [id number] of : 1975ACC: [id number]: [id number] time: 9:17Stop time: 9:39ICD-10: R56.9 CPT Code: 70729 HISTORY: Israel Gonzalez is a 42 y.o. female with history of prior drug overdose, DM, HTN, s/p episode of generalized shaking x 1 minute MEDICATIONS THAT COULD AFFECT EEG: None TECHNICAL SUMMARY: This is a digital EEG recorded with 32 input channels on a LiquidPlanner system, reviewed with bipolar and referential montages [...] of this report.Jessica Rich MD, PhDAttending Neur ophysiologistMilwaukee, [place] POCT- GLUCOSE [id number] 12:34:00 Test Item Value Reference Range Interpretation Comments POC-GLUCOSE METER 129 mg/dL 70-110 H TESTED AT [place] [address] ([facility]) (test code = [facility] 1538) [address] POCT-GLUCOSE [id number] 08:39:00 Test Item Value Reference Range Interpretation Comments POC-GLUCOSE METER 161 mg/dL 70-110 H TESTED AT [place] [address] ([facility]) (test code = [facility] 1538) [address] HEMOGLOBIN [id number] 07:52:00 Test Item Value Reference Range Interpretation Comments HEMOGLOBIN A1C ([facility]) (test code = 5.5 % 4.3-6.1 368) ACETAMINOPHEN [id number] 04:37:00 Test Item Value Reference Range Interpretation Comments ACETAMINOPHEN LEVEL (BEAKER) (test < ug/mL 10.0-30.0 L code = 344) Therapeutic Range: 10.0-30.0 g/mLToxic Levels: >200.0 g/mLPROTHROMBIN [id number] 04:32:00 Test Item Value Reference Range Interpretation Comments PROTIME (AKER) (test code = 14.1 seconds 11.7-14.7 759) INR ([facility]) (test code = 370) 1.1 <=5.9 RECOMMENDED COUMADIN/WARFARIN INR THERAPY RANGESSTANDARD DOSE: 2.0 - 3.0 Includes: PROPHYLAXIS forvenous thrombosis, systemic embolization; TREATMENT for venous thrombosis and/or pulmonary embolus.HIGH RISK: Target INR is 2.5-3.5 for patients with mechanical heart valves.BASIC METABOLIC [id number] 04:29:00 Test Item Value Reference Range Interpretation [...] m DATA TO CALCULA TE ESTIMATED GFR. [id number] 04:28:00 Test Item Value Reference Range Interpretation Comments PHOSPHORUS (BEAKER) (test code = 2.4 mg/dL 2.3-4.7 604) [id number] 04:28:00 Test Item Value Reference Range Interpretation Comments MAGNESIUM (BEAKER) (test code = 2.0 mg/dL 1.6-2.6 627) HEPATIC FUNCTION [id number] 04:28:00 Test Item Value Reference Range Interpretation [...] 6-55 347) CBC W/PLT COUNT & AUTO [id number] 04:15:00 Test Item Value Reference Range Interpretation [...] (test code = 2801) RAPID DRUG SCREEN, [id number] 00:32:00 Test Item Value Reference Range Interpretation [...] situations. Chain of custody not maintained. Some qhwx-tmr-ggprzgy medications, as well as adulterants, may cause inaccurate results. Clinical correlation should be applied. A more comprehensive drug screen or confirmation of a detected drug may be performed upon request. SCREEN, [id number] 00:28:00 Test Item Value Reference Range Interpretation Comments TEST URINE (BEAKER) (test Negative code = 583) URINALYSIS W/ REFLEX URINE [id number] 00:28:00 Test Item Value Reference Range Interpretation [...] 1584) SOURCE(BEAKER) (test code = 2795) POCT-GLUCOSE [id number] 21:55:00 Test Item Value Reference Range Interpretation Comments POC-GLUCOSE METER 177 mg/dL 70-110 H TESTED AT [facility] 6720 (BEAKER) (test code = [place] 1538) [id number]
[2020-04-23 07:41] LABS: Basophils % 0.4 % (0-1.3); Hematocrit 35.2 % (36.0-45.0); MPV 9.4 fL (7.6-11.3); Protime INR 0.92; RBC Red Blood Cell Count 4.22 M/uL (3.86-4.86)
[2020-04-23] MEDS ORDERED: METOCLOPRAMIDE 10 MG/2mL INJ ONE (07:50)
[2020-04-23] MEDS ORDERED: KETOROLAC 30 MG/ML INJ ONE (07:50)
[2020-04-23] MEDS ORDERED: NA CHLORIDE 0.9% 1,000 ML ONE (07:51)
[2020-04-23 07:57] LABS: ALT/SGPT 9 U/L (12-78); AST/SGOT 5 U/L (15-37); Albumin 3.3 g/dL (3.4-5.0); Alkaline Phosphatase 70 U/L (45-117); BUN Blood Urea Nitrogen 11 mg/dL (7-18); Bicarbonate 28 mmol/L (21-32); Bilirubin Direct < 0.1 mg/dL (0-0.2); Bilirubin Total 0.2 mg/dL (0.2-1.0); Glucose Level 190 mg/dL (74-106); NT PRO-BNP 78 pg/mL (<125); Potassium 3.4 mmol/L (3.5-5.1); Protein, Total 8.1 g/dL (6.4-8.2); Sodium Level 140 mmol/L (136-145); Troponin (Emerg Dept Use Only) < 0.02 ng/mL (0.0-0.045)
--- NOTE | 2020-04-23 08:12 | RAD REPORT ---
EXAM DESCRIPTION: CT - Head Brain Wo Cont - 04/23/2020 7:58 am CLINICAL HISTORY: PAIN, headache, left arm pain COMPARISON: No comparisons TECHNIQUE: Axial 5 mm thick images of the head were obtained without IV contrast. All CT scans are performed using dose optimization technique as appropriate and may include automated exposure control or mA/KV adjustment according to patient size. FINDINGS: No intracranial hemorrhage, mass, edema or shift of mid-line structures. No acute infarcti on changes seen. No cortical edema or sulcal effacement. Patient does appear to have some early volum e loss given her age. Ventricles are in proportion to any volume loss. Minimal periventricular chroni c ischemic changes in the white matter suspected. Mastoid air cells and visualized portions of the paranasal sinuses are clear. No acute bony findings. IMPRESSION: No acute intracranial finding.
--- NOTE | 2020-04-23 09:18 | ER ---
Nurse's Notes [facility] Name: Israel Adorno Age: 44 yrs Sex: Female : 1975 Arrival Date: 04/23/2020 Time: 06:31 Bed 8 Private MD: Diagnosis: Essential (primary) hypertension Presentation: 04/23 07:05 Chief complaint: Patient states: "I think my blood pressure is up because my head and hb left arm hurt.". Coronavirus screen: Client presents with at least one sign or symptom that may indicate coronavirus-19. Standard/surgical mask placed on the client. Provider contacted for isolation considerations. Ebola Screen: No symptoms or risks identified at this time. Initial Sepsis Screen: Does the patient meet any 2 criteria? No. Patient's initial sepsis screen is negative. Does the patient have a suspected source of infection? No. Patient's initial sepsis screen is negative. Risk Assessment: Do you want to hurt yourself or someone else? Patient reports no desire to harm self or others. Onset of symptoms was April 23, 2020. 07:05 Method Of Arrival: Ambulatory hb 07:05 Acuity: YENY 3 hb Historical: - Allergies: 07:07 PENICILLINS; hb 07:07 Vancomycin; hb - Home Meds: 07:07 lisinopril Oral [Active]; hb - PMHx: 07:07 Diabetes - NIDDM; Hypertension; Schizophrenia; hb - Immunization history:: Adult Immunizations up to date. - Social history:: Smoking status: Patient denies any tobacco usage or history of. - Family history:: not pertinent. Screenin:25 Abuse screen: Denies threats or abuse. Nutritional screening: No deficits noted. em Tuberculosis screening: No symptoms or risk factors identified. Fall Risk None identified. Assessment: 07:30 General: Appears in no apparent distress. uncomfortable, Behavior is calm, cooperative, em appropriate for age. Pain: Complains of pain in head Pain currently is 8 out of 10 on a pain scale. Pain began 2 hours ago. Neuro: Level of Consciousness is awake, alert, obeys commands, Oriented to person, place, time, situation, Appropriate for age Reports dizziness, headache Denies. Cardiovascular: Capillary refill < 3 seconds Patient's skin is warm and dry. Respiratory: Airway is patent Respiratory effort is even, unlabored, Respiratory pattern is regular, symmetrical. GI: Patient currently denies nausea, vomiting. Derm: Skin is intact, is healthy with good turgor, Skin is pink, warm \\T\\ dry. 08:26 Reassessment: Patient appears in no apparent distress at this time. Patient and/or em family updated on plan of care and expected duration. Pain level reassessed. Patient is alert, oriented x 3, equal unlabored respirations, skin warm/dry/pink. Patient states symptoms have improved. Vital Signs: 07:05 BP 190 / 105; Pulse 85; Resp 16; Temp 97.8; Pulse Ox 100% on R/A; Weight 108.86 kg; hb Height 5 ft. 6 in. (167.64 cm); Pain 8/10; 07:30 BP 186 / 104; Pulse 78; Resp 18; Pulse Ox 98% on R/A; Pain 7/10; em 08:26 BP 161 / 88; Pulse 81; Resp 16; Pulse Ox 99% on R/A; em 07:05 Body Mass Index 38.74 (108.86 kg, 167.64 cm) hb ED Course: 06:31 Patient arrived in ED. cl3 07:07 Triage completed. hb 07:07 Arm band placed on. hb 07:18 Gregoria Carrasco MD is Attending Physician. ma2 07:20 Heriberto Dominique, RN is Primary Nurse. em 07:45 EKG done, by ED staff, reviewed by Gregoria Carrasco MD. dh3 07:59 CT Head Brain wo Cont In Process Unspecified. EDMS 08:26 Patient has correct armband on for positive identification. Placed in gown. Bed in low em position. Call light in reach. clinical documentation clerk on. Pulse ox on. NIBP on. 09:34 No provider procedures requiring assistance completed. IV discontinued, intact, em bleeding controlled, No redness/swelling at site. Pressure dressing applied. Administered Medications: 07:44 Drug: NS 0.9% 1000 ml Route: IV; Rate: 1 bolus; Site: right antecubital; em 09:36 Follow up: IV Status: Completed infusion; IV Intake: 1000ml em 07:45 Drug: Reglan 10 mg Route: IVP; Site: right antecubital; em 08:30 Follow up: Response: No adverse reaction; Marked relief of symptoms em 07:46 Drug: TORadol 30 mg Route: IVP; Site: right antecubital; em 08:30 Follow up: Response: No adverse reaction; Marked relief of symptoms em Intake: 09:36 IV: 1000ml; Total: 1000ml. em Outcome: 09:17 Discharge ordered by MD. morris 09:35 Discharged to home ambulatory. em 09:35 Condition: improved 09:35 Discharge instructions given to patient, Instructed on discharge instructions, follow up and referral plans. medication usage, Demonstrated understanding of instructions, follow-up care, medications, Prescriptions given X 2. 09:36 Patient left the ED. em Signatures: Dispatcher [employer] Heriberto Gordon RN RN em Baxter, Heather, RN RN Chalo, Diane 3 Gregoria Carrasco MD MD ma2 Lewis, Charde cl3
--- NOTE | 2020-04-23 09:18 | EDPHYS ---
Physician Documentation [facility] Name: Israel Adorno Age: 44 yrs Sex: Female : 1975 Arrival Date: 04/23/2020 Time: 06:31 Bed 8 Private MD: ED Physician Gregoria Carrasco HPI: 04/23 09:14 This 44 yrs old Black Female presents to ER via Ambulatory with complaints of High ma2 Blood Pressure. 09:14 The patient has elevated blood pressure and discovered this at home. Onset: The ma2 symptoms/episode began/occurred gradually, 2 week(s) ago. Associated signs and symptoms: Pertinent negatives: dyspnea, headache, nausea, visual changes. Severity of symptoms: At its worst the blood pressure was moderate, in the emergency department the blood pressure is unchanged. The patient has experienced similar episodes in the past. took her bp today, also has migraine, gradual moderate unchanged from prior, has similar headache before . Historical: - Allergies: 07:07 PENICILLINS; hb 07:07 Vancomycin; hb - Home Meds: 07:07 lisinopril Oral [Active]; hb - PMHx: 07:07 Diabetes - NIDDM; Hypertension; Schizophrenia; hb - Immunization history:: Adult Immunizations up to date. - Social history:: Smoking status: Patient denies any tobacco usage or history of. - Family history:: not pertinent. ROS: 09:14 Constitutional: Negative for fever, chills, and weight loss. ma2 09:14 All other systems are negative. Exam: 09:14 Constitutional: This is a well developed, well nourished patient who is awake, alert, ma2 and in no acute distress. Eyes: Pupils equal round and reactive to light, extra-ocular motions intact. Lids and lashes normal. Conjunctiva and sclera are non-icteric and not injected. Cornea within normal limits. Periorbital areas with no swelling, redness, or edema. ENT: Nares patent. No nasal discharge, no septal abnormalities noted. Tympanic membranes are normal and external auditory canals are clear. Oropharynx with no redness, swelling, or masses, exudates, or evidence of obstruction, uvula midline. Mucous membranes moist. Chest/axilla: Normal chest wall appearance and motion. Nontender with no deformity. No lesions are appreciated. Cardiovascular: Regular rate and rhythm with a normal S1 and S2. No gallops, murmurs, or rubs. Normal PMI, no JVD. No pulse deficits. Respiratory: Lungs have equal breath sounds bilaterally, clear to auscultation and percussion. No rales, rhonchi or wheezes noted. No increased work of breathing, no retractions or nasal flaring. Abdomen/GI: Soft, non-tender, with normal bowel sounds. No distension or tympany. No guarding or rebound. No evidence of tenderness throughout. Back: No spinal tenderness. No costovertebral tenderness. Full range of motion. MS/ Extremity: Pulses equal, no cyanosis. Neurovascular intact. Full, normal range of motion. Neuro: Awake and alert, GCS 15, oriented to person, place, time, and situation. Cranial nerves II-XII grossly intact. Motor strength 5/5 in all extremities. Sensory grossly intact. Cerebellar exam normal. Normal gait. Vital Signs: 07:05 BP 190 / 105; Pulse 85; Resp 16; Temp 97.8; Pulse Ox 100% on R/A; Weight 108.86 kg; hb Height 5 ft. 6 in. (167.64 cm); Pain 8/10; 07:30 BP 186 / 104; Pulse 78; Resp 18; Pulse Ox 98% on R/A; Pain 7/10; em 08:26 BP 161 / 88; Pulse 81; Resp 16; Pulse Ox 99% on R/A; em 07:05 Body Mass Index 38.74 (108.86 kg, 167.64 cm) hb MDM: 07:18 Patient medically screened. ma2 09:14 Differential diagnosis: migraine, essential htn, unlikley other dd includes secondary ma2 htn, arf, htn emergency. Data reviewed: vital signs, nurses notes. Counseling: I had a detailed discussion with the patient and/or guardian regarding: the historical points, exam findings, and any diagnostic results supporting the discharge/admit diagnosis, the presence of at least one elevated blood pressure reading (>120/80) during this emergency department visit, the need for outpatient follow up. Response to treatment: the patient's symptoms have resolved after treatment. 04/23 07:18 Order name: Basic Metabolic Panel; Complete Time: 08:16 ma2 04/23 07:18 Order name: CBC with Diff; Complete Time: 08:16 ma2 04/23 07:18 Order name: LFT's; Complete Time: 08:16 04/23 07:18 Order name: Magnesium; Complete Time: 08:16 04/23 07:18 Order name: NT PRO-BNP; Complete Time: 08:16 04/23 07:18 Order name: PT-INR; Complete Time: 08:16 04/23 07:18 Order name: Troponin (emerg Dept Use Only); Complete Time: 08:16 04/23 07:18 Order name: EKG; Complete Time: 07:19 04/23 07:18 Order name: Cardiac monitoring; Complete Time: 07:46 04/23 07:18 Order name: EKG - Nurse/Tech; Complete Time: 07:46 04/23 07:35 Order name: CT Head Brain wo Cont; Complete Time: 08:16 04/23 07:18 Order name: IV Saline Lock; Complete Time: 07:46 04/23 07:18 Order name: Labs collected and sent; Complete Time: 07:20 04/23 07:18 Order name: O2 Per Protocol; Complete Time: 07:20 04/23 07:18 Order name: O2 Sat Monitoring; Complete Time: 07:20 Administered Medications: 07:44 Drug: NS 0.9% 1000 ml Route: IV; Rate: 1 bolus; Site: right antecubital; em 09:36 Follow up: IV Status: Completed infusion; IV Intake: 1000ml em 07:45 Drug: Reglan 10 mg Route: IVP; Site: right antecubital; em 08:30 Follow up: Response: No adverse reaction; Marked relief of symptoms em 07:46 Drug: TORadol 30 mg Route: IVP; Site: right antecubital; em 08:30 Follow up: Response: No adverse reaction; Marked relief of symptoms em Disposition: 04/23/20 09:17 Discharged to Home. Impression: Essential (primary) hypertension. - Condition is Stable. - Discharge Instructions: Hypertension. - Prescriptions for Reglan 10 mg Oral Tablet - take 1 tablet by ORAL route every 6 hours . take 30 minutes before meals and at bedtime; 100 tablet. Diclofenac Sodium 75 mg Oral Tablet Sustained Release - take 1 tablet by ORAL route 2 times per day; 30 tablet. - Medication Reconciliation Form, Thank You Letter, Antibiotic Education, Prescription Opioid Use form. - Follow up: Private Physician; When: Tomorrow; Reason: Continuance of care. Signatures: Dispatcher [employer] Heriberto Gordon, RN Uyen Whalen RN RN Gregoria Carrasco MD MD ma2 Corrections: (The following items were deleted from the chart) 09:36 09:17 04/23/2020 09:17 Discharged to Home. Impression: Essential (primary) em hypertension. Condition is Stable. Prescriptions for Reglan 10 mg Oral Tablet - take 1 tablet by ORAL route every 6 hours . take 30 minutes before meals and at bedtime; 100 tablet, Diclofenac Sodium 75 mg Oral Tablet Sustained Release - take 1 tablet by ORAL route 2 times per day; 30 tablet. and Forms are Medication Reconciliation Form, Thank You Letter, Antibiotic Education, Prescription Opioid Use. Follow up: Private Physician; When: Tomorrow; Reason: Continuance of care. ma2
[2020-04-23 09:48] VITALS: TEMP 97.8
[2020-04-23 09:50] VITALS: BP 161/88; O2SAT 99
== END 2020-04-23 09:36 | disposition home or self-care (01) ==
LOC: ER 06:31
DX: I10 Essential (primary) hypertension (principal); Z88.0 Allergy status to penicillin; Z88.3 Allergy status to other anti-infective agents
CPT/HCPCS: 96361; 93005; 85025; 80048; 36415; 83735; 85610; 80076; 84484; 83880; 70450; 96375; 96374; 99284; J2765; J7030

== ENCOUNTER 2022-11-12 05:07 | Emergency (ER) | payer OTHER ==
--- OUTSIDE RECORDS SUMMARY | 2022-11-12 05:13 | XMS REPORT | Continuity of Care Document ---
:1975 Author Organization [facility] t Address [address] [place] [address] Care Team Providers Name Role Phone GONZALO CHONG Primary Care Physician Unavailable LYRIC AYOUB Attending Clinician Unavailable Lyric Ayoub DO Attending Clinician Doctor Unassigned, [place] Attending Clinician Unavailable ARGELIA BROWN Attending Clinician Unavailable Argelia Brown MD Attending Clinician MAI CAMPBELL Attending Clinician Unavailable ARGELIA BROWN Admitting Clinician Unavailable MAI CAMPBELL Admitting Clinician Unavailable Payers Payer Name Policy Type Policy Number Effective Date Expiration Date S ource MEDICARE OBS/INPT [id number] 2007 PART A ONLY 00:00:00 Problems Condition Condition Condition Status Onset Resolution Last Treating Co mments Source Name Details Category Date Date Treatment Clinician Date Drug Drug Disease Active [facility] [place] [address] [facility] Severe Severe Disease Active 2017-04 Univers anemia anemia 1-04 ity of 00:00: [address] Chest pain Chest pain Disease Active 2017-04 U nivers 0-21 ity of 00:00: [address] Obesity Obesity Disease Active 2016-04 Univers (BMI (BMI 2-12 ity of 30-39.9) 30-39.9) 00:00: [place] 00 [facility] Malignant Malignant Disease Active 2016-04 Uni vers hypertensi hypertensi 2-12 it y of on on 00:00: [place] 00 [facility] Allergies, Adverse Reactions, Alerts Allergy Allergy Status Severity Reaction(s) Onset Inactive Treating Comm ents Source Name Type Date Date Clinician COCONUT DRUG Active Hives Univers INGREDI 209 ity of 00:00: [place] [facility] Coconut Propensi Active Hives Rash when Univ ers ty to 2 bathing ity of adverse 00:00: [place] reaction 00 Medical s Branch ASPIRIN DRUG Active Unknown-Cmnt Uni vers INGREDI 7 ity of 00:00: [place] 00 [facility] Aspirin Propensi Active Unknown - Univ ers ty to See comments 11-03 ity of adverse 00:00: [place] reaction 00 Medical s Branch No Known DA Active U 2019-04 [facility] Drug 05-13 Allergie 00:00: s 00 Penicill Propensi Active Rash 2018- [facility] adverse 00:00: Medical reaction 00 Center s Vancomyc Propensi Active Rash 2018- [facility] 130 [facility] Analogue adverse 00:00: Medical s reaction 00 Center s PENICILL Drug Active Rash 2016- Univers INS Class 2-12 ity of 00:00: [place] 00 Medical Branch VANCOMYC DRUG Active Rash 2016- Univers IN INGREDI 2-12 ity of 00:00: [place] 00 [facility] Branch Penicill Propensi Active Rash 2017- Univer s ins ty to 2-12 ity of adverse 00:00: [place] reaction 00 Medical s Branch Penicill Propensi Active Rash 2017- Univer s ins ty to 2-12 ity of adverse 00:00: [place] reaction 00 Medical s Branch Vancomyc Propensi Active Rash 2016- Univer s in ty to 2-12 ity of adverse 00:00: [place] reaction 00 Medical s Branch Social History Social Habit Start Date Stop Date Quantity Comments Source Exposure to 2022-05-06 2022-05-16 Not sure [facility] SARS-CoV-2 00:00:00 07:49:00 [place] [facility] (event) Branch Alcohol intake 2018-05-06 2018-05-06 [facility]:00 alcohol (finding) [facility] Alcohol Comment 2018-05-06 2018-05-06 occassionally JESUS ALBERTO Cobb 00:00:00 00:00:00 [facility] Tobacco use and 2017-03-18 2017-03-18 Smokeless tobacco Un iversity of exposure 00:00:00 00:00:00 non-user [facility] Sex Assigned At [birth year] JESUS ALBERTO Englishs 00:00:00 00:00:00 [facility] Smoking Status Start Date Stop Date Source Never smoked tobacco [facility] Medications Ordered Filled Start Stop Current Ordering Indication Dosage Frequency Signature Comments Components Source Medication Medication Date Date Medication? Clinician (SIG) Name Name gabapentin 2020-04 Yes [id number] 200mg Take 2 Univers (NEURONTIN) 1-06 capsules ity of 100 mg 00:00: by mouth 3 [place] capsule 00 (three) Medical times [place] daily. gabapentin 2020-04 Yes [id number] 200mg Take 2 Univers (NEURONTIN) 1-06 capsules ity of 100 mg 00:00: by mouth 3 [place] capsule 00 (three) Medical times [place] daily. gabapentin 2020-04 Yes [id number] 200mg Take 2 Univers (NEURONTIN) 1-06 capsules ity of 100 mg 00:00: by mouth 3 [place] capsule 00 (three) [facility] times [place] daily. ASPIRIN, Yes Univers BULK, MISC 7-30 ity of 16:09: [address] ASPIRIN, Yes Univers BULK, MISC 7-30 ity of 16:09: [address] ASPIRIN, Yes Univers BULK, MISC 7-30 ity of 16:09: [address] iopamidol 2020- No [id number] 120mL 120 mL, Univers (ISOVUE 11-03 07-30 Intravenou ity o f 370-500 mL) 14:15: 14:15 s, ONCE, 1 [place] injection 00 :00 dose, Fri Medic al 120 mL 11/03/20 at [place] 0930, Routine ASPIRIN, Yes Univers BULK, MISC 7-30 ity of 11:09: [address] ASPIRIN, Yes Univers BULK, MISC 7-30 ity of 11:09: [place] 49 [facility] Branch ASPIRIN, Yes Univers BULK, MISC 7-30 ity of 11:09: [place] 49 [facility] Branch ibuprofen Yes [id number] 600mg Take 1 U nivers 600 mg 7-30 tablet by ity of tablet 00:00: mouth [place] 00 every 6 Medical (six) Branch hours as needed for Pain (scale 4-6). ibuprofen Yes [id number] 600mg Take 1 U nivers 600 mg 7-30 tablet by ity of tablet 00:00: mouth [place] 00 every 6 Medical (six) Branch hours as needed for Pain (scale 4-6). ibuprofen Yes [id number] 600mg Take 1 U nivers 600 mg 7-30 tablet by ity of tablet 00:00: mouth [place] 00 every 6 Medical (six) Branch hours as needed for Pain (scale 4-6). ibuprofen Yes [id number] 600mg Take 1 U nivers 600 mg 7-30 tablet by ity of tablet 00:00: mouth [place] 00 every 6 Medical (six) Branch hours as needed for Pain (scale 4-6). ibuprofen Yes [id number] 600mg Take 1 U nivers 600 mg 7-30 tablet by ity of tablet 00:00: mouth [place] 00 every 6 Medical (six) Branch hours as needed for Pain (scale 4-6). ibuprofen Yes [id number] 600mg Take 1 U nivers 600 mg 7-30 tablet by ity of tablet 00:00: mouth [place] 00 every 6 Medical (six) Branch hours as needed for Pain (scale 4-6). lisinopril Yes 20mg QD Take [address] (PRINIVIL,Z 2-01 by mouth Luke s ESTRIL) 20 02:55: daily. Medic al MG tablet 50 Center insulin NPH Yes 20U QD Inject [address] (HUMULIN N) 1-31 Units [facility] 100 unit/mL 00:00: subcutaneo Medical injection 00 usly every Cent er morning Use as directed . cyanocobala Yes INJECT [address] min 1-09 ML [facility] (VITAMIN 00:00: INTRAMUSCU Med ical B-12) 1,000 00 LARLY 1 Cente r mcg/mL TIME EVERY injection MONTH cyanocobala 2017-04 Yes 1000ug 1 mL by U nivers min 1,000 1-20 Intramuscu ity of mcg/mL 00:00: lar route [place] injection 00 once every Medi titus month. Branch cyanocobala 2017- Yes 1000ug 1 mL by U nivers min 1,000 1-20 Intramuscu ity of mcg/mL 00:00: lar route [place] injection 00 once every Medi titus month. Branch cyanocobala 2017- Yes 1000ug 1 mL by U nivers min 1,000 1-20 Intramuscu ity of mcg/mL 00:00: lar route [place] injection 00 once every Medi titus month. Branch cyanocobala 2017- Yes 1000ug 1 mL by U nivers min 1,000 1-20 Intramuscu ity of mcg/mL 00:00: lar route [place] injection 00 once every Medi titus month. Branch cyanocobala 2017-04 Yes 1000ug 1 mL by U nivers min 1,000 1-20 Intramuscu ity of mcg/mL 00:00: lar route [place] injection 00 once every [facility] month. Branch cyanocobala 2017-04 Yes 1000ug 1 mL by U nivers min 1,000 1-20 Intramuscu ity of mcg/mL 00:00: lar route [place] injection 00 once every [facility] month. Branch lisinopril 2017-04 Yes 20mg Take 1 Unive rs 20 mg 0-27 tablet by ity of tablet 00:00: mouth [place] 00 daily. Medical Branch ziprasidone 2017-04 Yes 40mg Take 1 Univ ers 40 mg 0-27 capsule by ity of capsule 00:00: mouth 2 (two) Medical times [place] daily with meals. lisinopril 2017-04 Yes 20mg Take 1 Unive rs 20 mg 0-27 tablet by ity of tablet 00:00: mouth [place] 00 daily. Medical Branch ziprasidone 2017-04 Yes 40mg Take 1 Univ ers 40 mg 0-27 capsule by ity of capsule 00:00: mouth 2 (two) Medical times [place] daily with meals. lisinopril 2017-04 Yes 20mg Take 1 Unive rs 20 mg 0-27 tablet by ity of tablet 00:00: mouth [place] 00 daily. Medical Branch ziprasidone 2017-04 Yes 40mg Take 1 Univ ers 40 mg 0-27 capsule by ity of capsule 00:00: mouth 2 (two) Medical times Branch daily with meals. lisinopril 2017-04 Yes 20mg Take 1 Unive rs 20 mg 0-27 tablet by ity of tablet 00:00: mouth [place] 00 daily. Medical Branch ziprasidone 2017-04 Yes 40mg Take 1 Univ ers 40 mg 0-27 capsule by ity of capsule 00:00: mouth 2 (two) Medical times Branch daily with meals. lisinopril 2017-04 Yes 20mg Take 1 Unive rs 20 mg 0-27 tablet by ity of tablet 00:00: mouth [place] 00 daily. Medical Branch ziprasidone 2017-04 Yes 40mg Take 1 Univ ers 40 mg 0-27 capsule by ity of capsule 00:00: mouth 2 (two) Medical times Branch daily with meals. lisinopril 2017-04 Yes 20mg Take 1 Unive rs 20 mg 0-27 tablet by ity of tablet 00:00: mouth [place] 00 daily. Medical Branch ziprasidone 2017-04 Yes 40mg Take 1 Univ ers 40 mg 0-27 capsule by ity of capsule 00:00: mouth 2 (two) Medical times Branch daily with meals. foLIC acid 2017-04 Yes 1mg Take 1 Unive rs 1 mg tablet 0-26 tablet by ity of 00:00: mouth [place] 00 daily. Medical Branch SERTraline 2017-04 Yes 50mg Take 1 Unive rs 50 mg 0-26 tablet by ity of tablet 00:00: mouth [place] 00 daily. Medical Branch foLIC acid 2017-04 Yes 1mg Take 1 Unive rs 1 mg tablet 0-26 tablet by ity of 00:00: mouth [place] 00 daily. Medical Branch SERTraline 2017-04 Yes 50mg Take 1 Unive rs 50 mg 0-26 tablet by ity of tablet 00:00: mouth [place] 00 daily. Medical Branch foLIC acid 2017-04 Yes 1mg Take 1 Unive rs 1 mg tablet 0-26 tablet by ity of 00:00: mouth [place] 00 daily. Medical Branch SERTraline 2017-04 Yes 50mg Take 1 Unive rs 50 mg 0-26 tablet by ity of tablet 00:00: mouth [place] 00 daily. Medical Branch foLIC acid 2017-04 Yes 1mg Take 1 Unive rs 1 mg tablet 0-26 tablet by ity of 00:00: mouth [place] 00 daily. Medical Branch SERTraline 2017-04 Yes 50mg Take 1 Unive rs 50 mg 0-26 tablet by ity of tablet 00:00: mouth [place] 00 daily. Medical Branch foLIC acid 2017-04 Yes 1mg Take 1 Unive rs 1 mg tablet 0-26 tablet by ity of 00:00: mouth [place] 00 daily. Medical Branch SERTraline 2017-04 Yes 50mg Take 1 Unive rs 50 mg 0-26 tablet by ity of tablet 00:00: mouth [place] 00 daily. Medical Branch foLIC acid 2017-04 Yes 1mg Take 1 Unive rs 1 mg tablet 0-26 tablet by ity of 00:00: mouth [place] 00 daily. Medical Branch SERTraline 2017-04 Yes 50mg Take 1 Unive rs 50 mg 0-26 tablet by ity of tablet 00:00: mouth [place] 00 daily. Medical Branch temazepam 2017-04 Yes 30mg Take 30 mg Un erlinda 30 mg 0-25 by mouth ity of capsule 22:23: at [place] 25 bedtime. Medical Branch metformin 2017-04 Yes 1000mg Take 1,000 Univers ER 500 mg 0-25 mg by ity of 24 hr 22:23: mouth [place] tablet 25 daily. Medical Branch pravastatin 2017-04 Yes 40mg Take 40 mg Univers 40 mg 0-25 by mouth ity of tablet 22:23: at [place] 25 bedtime. Medical Branch temazepam 2017-04 Yes 30mg Take 30 mg Un erlinda 30 mg 0-25 by mouth ity of capsule 22:23: at [place] 25 bedtime. Medical Branch metformin 2017-04 Yes 1000mg Take 1,000 Univers ER 500 mg 0-25 mg by ity of 24 hr 22:23: mouth [place] tablet 25 daily. Medical Branch pravastatin 2017-04 Yes 40mg Take 40 mg Univers 40 mg 0-25 by mouth ity of tablet 22:23: at [place] 25 bedtime. Medical Branch temazepam 2017-04 Yes 30mg Take 30 mg Un erlinda 30 mg 0-25 by mouth ity of capsule 22:23: at [place] 25 bedtime. Medical Branch metformin 2017-04 Yes 1000mg Take 1,000 Univers ER 500 mg 0-25 mg by ity of 24 hr 22:23: mouth [place] tablet 25 daily. Medical Branch pravastatin 2017-04 Yes 40mg Take 40 mg Univers 40 mg 0-25 by mouth ity of tablet 22:23: at [place] 25 bedtime. Medical Branch temazepam 2017-04 Yes 30mg Take 30 mg Un erlinda 30 mg 0-25 by mouth ity of capsule 17:23: at [place] 25 bedtime. Medical Branch metformin 2017-04 Yes 1000mg Take 1,000 Univers ER 500 mg 0-25 mg by ity of 24 hr 17:23: mouth [place] tablet 25 daily. Medical Branch pravastatin 2017-04 Yes 40mg Take 40 mg Univers 40 mg 0-25 by mouth ity of tablet 17:23: at [place] 25 bedtime. Medical Branch temazepam 2017-04 Yes 30mg Take 30 mg Un erlinda 30 mg 0-25 by mouth ity of capsule 17:23: at [place] 25 bedtime. Medical Branch metformin 2017-04 Yes 1000mg Take 1,000 Univers ER 500 mg 0-25 mg by ity of 24 hr 17:23: mouth [place] tablet 25 daily. Medical Branch pravastatin 2017-04 Yes 40mg Take 40 mg Univers 40 mg 0-25 by mouth ity of tablet 17:23: at [place] 25 bedtime. Medical Branch temazepam 2017-04 Yes 30mg Take 30 mg Un erlinda 30 mg 0-25 by mouth ity of capsule 17:23: at [place] 25 bedtime. Medical Branch metformin 2017-04 Yes 1000mg Take 1,000 Univers ER 500 mg 0-25 mg by ity of 24 hr 17:23: mouth [place] tablet 25 daily. Medical Branch pravastatin 2017-04 Yes 40mg Take 40 mg Univers 40 mg 0-25 by mouth ity of tablet 17:23: at [place] 25 bedtime. Medical Branch ferrous 2017-04 Yes 325mg Take 1 Univers sulfate 325 0-25 tablet by ity of mg (65 mg 00:00: mouth 3 [place] iron) 00 (three) Medical tablet times Branch daily with meals. ferrous 2017-04 Yes 325mg Take 1 Univers sulfate 325 0-25 tablet by ity of mg (65 mg 00:00: mouth 3 [place] iron) 00 (three) Medical tablet times Branch daily with meals. ferrous 2017-04 Yes 325mg Take 1 Univers sulfate 325 0-25 tablet by ity of mg (65 mg 00:00: mouth 3 [place] iron) 00 (three) Medical tablet times Branch daily with meals. ferrous 2017-04 Yes 325mg Take 1 Univers sulfate 325 0-25 tablet by ity of mg (65 mg 00:00: mouth 3 [place] iron) 00 (three) Medical tablet times Branch daily with meals. ferrous 2017-04 Yes 325mg Take 1 Univers sulfate 325 0-25 tablet by ity of mg (65 mg 00:00: mouth 3 [place] iron) 00 (three) Medical tablet times Branch daily with meals. ferrous 2017-04 Yes 325mg Take 1 Univers sulfate 325 0-25 tablet by ity of mg (65 mg 00:00: mouth 3 [place] iron) 00 (three) Medical tablet times Branch daily with meals. Immunizations Ordered Filled Immunization Date Status Comments [facility] e Immunization Name Name Influenza Virus 2018-01-29 Completed Universit y of Vaccine Quad .5 mL 00:00:00 [place] Medical IM 6+ MO Branch Influenza Virus 2018-01-29 Completed Universit y of Vaccine Quad .5 mL 00:00:00 [place] Medical IM 6+ MO Branch Influenza Virus 2018-01-29 Completed Universit y of Vaccine Quad .5 mL 00:00:00 [place] Medical IM 6+ MO Branch Influenza Virus 2018-01-29 Completed Universit y of Vaccine Quad .5 mL 00:00:00 [place] Medical IM 6+ MO Branch Influenza Virus 2018-01-29 Completed Universit y of Vaccine Quad .5 mL 00:00:00 [place] Medical IM 6+ MO Branch Influenza Virus 2018-01-29 Completed Universit y of Vaccine Quad .5 mL 00:00:00 [facility] IM 6+ MO Branch Pneumococcal 2017-03-18 Completed University o f Polysaccharide, 00:00:00 [place] Med ical PPSV23 (PNEUMOVAX) Branch Influenza Virus 2017-03-18 Completed Universit y of Vaccine Quad IM 3+ 00:00:00 [facility] Pneumococcal 2017-03-18 Completed University o f Polysaccharide, 00:00:00 [place] Med ical PPSV23 (PNEUMOVAX) Branch Influenza Virus 2017-03-18 Completed Universit y of Vaccine Quad IM 3+ 00:00:00 [facility] Pneumococcal 2017-03-18 Completed University o f Polysaccharide, 00:00:00 [place] Med ical PPSV23 (PNEUMOVAX) Branch Influenza Virus 2017-03-18 Completed Universit y of Vaccine Quad IM 3+ 00:00:00 [facility] Pneumococcal 2017-03-18 Completed University o f Polysaccharide, 00:00:00 [place] Med ical PPSV23 (PNEUMOVAX) Branch Influenza Virus 2017-03-18 Completed Universit y of Vaccine Quad IM 3+ 00:00:00 [facility] Pneumococcal 2017-03-18 Completed University o f Polysaccharide, 00:00:00 [place] Med ical PPSV23 (PNEUMOVAX) Branch Influenza Virus 2017-03-18 Completed Universit y of Vaccine Quad IM 3+ 00:00:00 [facility] Pneumococcal 2017-03-18 Completed University o f Polysaccharide, 00:00:00 [place] Med ical PPSV23 (PNEUMOVAX) Branch Influenza Virus 2017-03-18 Completed Universit y of Vaccine Quad IM 3+ 00:00:00 [facility] Vital Signs Vital Name Observation Time Observation Value Comments Source Systolic blood 2022-05-16 13:52:00 190 mm[Hg] Univer sity of pressure [facility] Diastolic blood 2022-05-16 13:52:00 99 mm[Hg] Unive rsity of [facility] Heart rate 2022-05-16 13:51:00 102 /min Universi ty [facility] Body temperature 2022-05-16 13:51:00 36.61 Steffanie [facility] 2022-05-16 13:51:00 18 /min [facility] Body height 2022-05-16 13:51:00 167.6 cm [facility] Body weight 2022-05-16 13:51:00 104.327 kg [facility] BMI 2022-05-16 13:51:00 37.12 kg/m2 [facility] Oxygen saturation in 2022-05-16 13:51:00 100 /min University of Arterial blood by [place] Sprig titus Pulse oximetry Branch Systolic blood 2021-02-10 15:00:00 139 mm[Hg] Univer sity of pressure [facility] Diastolic blood 2021-02-10 15:00:00 93 mm[Hg] Unive rsity of pressure [facility] Heart rate 2021-02-10 15:00:00 79 /min Universi ty [facility] Respiratory rate 2021-02-10 15:00:00 18 /min [facility] O[facility] in 2021-02-10 15:00:00 99 /min University of Arterial blood by [place] Sprig titus Pulse oximetry Branch Body temperature 2021-02-10 13:25:00 37.06 Steffanie [facility] Body weight 2021-02-10 13:20:00 90.266 kg [facility] BMI 2021-02-10 13:20:00 32.12 kg/m2 [facility] Systolic blood 2020-11-03 15:50:00 187 mm[Hg] Univer sity of pressure [facility] Diastolic blood 2020-11-03 15:50:00 99 mm[Hg] [facility] Heart rate 2020-11-03 15:50:00 87 /min [facility] Respiratory rate 2020-11-03 15:50:00 20 /min [facility] Oxygen saturation in 2020-11-03 15:50:00 98 /min [facility] Arterial blood by [facility] Pulse oximetry [place] Body temperature 2020-11-03 13:49:00 37.06 Steffanie [facility] Body weight 2020-11-03 13:49:00 90.266 kg [facility] BMI 2020-11-03 13:49:00 32.12 kg/m2 [facility] Procedures Procedure Date / Time Performing Clinician Source Performed CONSENT/REFUSAL FOR 2022-05-16 13:44:43 Doctor Unassigned, No Un [facility] DIAGNOSIS AND TREATMENT Name [facility] XR CHEST 1 VW 2021-02-10 13:46:39 Argelia Brown [facility] LIPASE 2021-02-10 13:23:00 Argelia Brown [facility] MAGNESIUM 2021-02-10 13:23:00 Argelia Brown [facility] TROPONIN I 2021-02-10 13:23:00 Argelia Brown [facility] COMP. METABOLIC PANEL 2021-02-10 13:23:00 [facility] ([id number]) [facility] CBC WITH DIFF 2021-02-10 13:23:00 Argelia Brown [facility] PROTHROMBIN TIME / INR 2021-02-10 13:23:00 Argelia Brown [facility] ACTIVATED PARTIAL 2021-02-10 13:23:00 Argelia Brown [facility] THRMPLAS AD [facility] COVID-19 (ID NOW RAPID 2021-02-10 13:23:00 Argelia Brown [facility] TESTING) Medical Branch CONSENT/REFUSAL FOR 2021-02-10 13:13:40 [facility] Name Medical Branch AUTHORIZATION FOR 2020-11-13 05:01:00 Doctor Unassigned, No Univ [facility] RELEASE OF PHI Name Medical Branch POCT TEST 2020-11-03 14:54:00 Argelia Brown [facility] URINALYSIS 2020-11-03 14:52:00 Argelia Brown [facility] CT ABDOMEN PELVIS W 2020-11-03 14:21:27 Argelia Brown [facility] CONTRAST [facility] COMP. METABOLIC PANEL 2020-11-03 13:57:00 Argelia Brown [facility] ([id number]) Medical [place] CBC WITH DIFF 2020-11-03 13:57:00 Argelia Brown [facility] NOTICE OF PRIVACY 2020-11-03 13:36:02 Doctor Unassigned, No Univ [facility] PRACTICES [facility] Encounters Start End Encounter Admission Attending Care Care Encounter Source Date/Time Date/Time Type Type Clinicians Facility Department ID 2020-03-12 Inpatient [facility] [id number] [facility] 02:00:00 82 2022-05-16 2022-05-16 [facility] [id number] Univers 07:52:00 08:33:00 LYRIC ramirez [facility] 2022-05-16 2022-05-16 [facility] [id number] Univers 07:52:00 08:33:00 Lyric BAUTISTA 350.1.13.10 ity [facility] [id number] [facility] [id number] [facility] 084 Branch 2022-05-16 2022-05-16 Orders Doctor KRAFT [id number] Univers 00:00:00 00:00:00 Only UnassSHAILESH reyna 350.1.13.10 ity of [place] [facility] 4.2.7.2.686 Rolando as [id number] [address] 2021-02-10 2021-02-10 Emergency [facility] [id number] Univers 08:24:00 10:49:00 ARGELIA ity [facility] 2021-02-10 2021-02-10 Emergency [facility] [id number] Univers 08:24:00 10:49:00 Argelia BAUTISTA 350.1.13.10 i ty of [place] 4.2.7.2.686 [facility] [id number] [address] 2020-11-13 2020-11-13 Orders Doctor SWAPNIL [id number] Univers 00:00:00 00:00:00 Only Unassigned, SHAILESH 350.1.13.10 ity of [place] [facility] [id number] Rol[place] as [id number] [address] 2020-11-03 2020-11-03 Emergency [facility] [id number] Univers 08:40:00 11:11:00 Argelia Wilbert 350.1.13.10 i ty of [place] 4.2.7.2.686 [facility] [id number] [address] 2020-11-03 2020-11-[address] [facility] ERT [id number] Univers 08:32:00 08:32:00 ity [facility] 2020-03-12 2020-03-12 Emergency [facility] [id number] [facility] 02:00:00 02:00:00 82 Results Test Description Test Time Test Comments Results Result Comments Source MAGNESIUM 2021-02-10 14:29:14 Test Item Value Reference Range Interpretation Comme nts MAGNESIUM (test code = 7138181180) 2.1 mg/dL 1.7-2.4 Lab Interpretation (test code = 12926-8) [id number] 14:17:57 Test Item Value Reference Interpretation Comments Range TROPONIN I (test 0.003 ng/mL See_Comment [Automated code = 8706480362) message] The system which generated this result transmitted reference range : <=0.034. The reference range was not used to interpret this result as normal/abnormal . KELVIN (test code = Reference (Normal) KELVIN) Range (defined by the 99th percentile reference limit): <= 0.034 ng/mL Note: Cardiac troponin begins to rise 3-4 hours after the onset of ischemia. Repeat in 4-6 hours if the sample was drawn within 3-4 hours of the onset of the symptom and found normal. Diagnosis of myocardial injury is made with acute changes in cTn concentrations with at least one serial sample above the 99th percentile upper reference limit (URL), taken together with the patient's clinical presentation. Biotin has been reported to cause a negative bias, interpret results relative to patient's use of biotin. Lab Interpretation Normal (test code = 57004-6) [facility]. METABOLIC PANEL ([id number])2021-02-10 14:06:34 Test Item Value Reference Range Interpretation Comments NA (test code = 139 mmol/L 135-145 9123327841) K (test code = 3.6 mmol/L 3.5-5.0 3397174489) CL (test code = 107 mmol/L 98-108 1935569172) CO2 TOTAL (test code = 25 mmol/L 23-31 2701082423) AGAP (test code = 2-16 5530245733) BUN (test code = 12 mg/dL 7-23 6874302892) GLUCOSE (test code = 142 mg/dL 70-110 H 3317292556) CREATININE (test code = 0.67 mg/dL 0.50-1.04 7337616713) TOTAL BILI (test code = 0.6 mg/dL 0.1-1.7 1290404722) CALCIUM (test code = 9.6 mg/dL 8.6-10.6 8179546994) T PROTEIN (test code = 8.1 g/dL 6.3-8.2 7537493812) ALBUMIN (test code = 4.1 g/dL 3.5-5.0 8308213146) ALK PHOS (test code = 75 U/L 34-122 5908066772) ALTv (test code = 11 U/L 5-35 2-6) AST(SGOT) (test code = 13 U/L 13-40 4549235158) eGFR (test code = mL/min/1.73m2 0697160820) KELVIN (test code = KELVIN) Association of Glomerular Filtration Rate (GFR) and Staging of Kidney Disease* + --+ --+ ------+| GFR (mL/min/1.73 m2) ?| With Kidney Damage ?| ?Without Kidney Damage+ --------+ --------+ +| ?>90 ?| ?Stage one ?| ? Normal ?+ ---+ ---+ -------+| ?60-89 ?| ?Stage two ?| ? Decreased GFR ? + --+ --+ ------+| ?30-59 ?| ?Stage three ?| ? Stage three ? + --+ --+ ------+| ?15-29 ?| ?Stage four ? | ? Stage four ?+ ---+ ---+ -------+| ?<15 (or dialysis) ? ?| ?Stage five ? | ? Stage five ?+ ---+ ---+ -------+ *Each stage assumes the associated GFR level has been in effect for at least three months. ?Stages 1 to 5, with or without kidney disease, indicate chronic kidney disease. Notes: Determination of stages one and two (with eGFR >59mL/min/1.73 m2) requires estimation of kidney damage for at least three months as defined by structural or functional abnormalities of the kidney, manifested by either:Pathological abnormalities or Markers of kidney damage (including abnormalities in the composition of the blood or urine or abnormalities in imaging tests). Lab Interpretation Abnormal (test code = 68726-6) [facility]14 Test Item Value Reference Range Interpretation Comments APTT Patient (test See_Comment [Automat ed code = 3173-2) message] The system which generated this result transmitted reference range : 23 - 38 Seconds . The reference range was not used to interpr et this result as normal/abnormal . KELVIN (test code = KELVIN) The [facility] patient population mean normal value for aPTT is 30 seconds. Lab Interpretation Normal (test code = 18734-9) [facility], [id number] 14:05:53 Test Item Value Reference Range Interpretation Comments LIPASE (test code = 9084005553) 48 U/L 0-220 Lab Interpretation (test code = Normal 77559-7) [facility] / [id number] 14:04:13 Test Item Value Reference Range Interpretation Comments PROTIME PATIENT (test See_Comment [Auto mated message] code = 5964-2) The system wh ich generated this result transmitted ref erence range: 12.0 - 1 4.7 Seconds. The re ference range was not u sed to interpret this result as normal/abnor mal. INR (test code = 6301-6) Nor mal INR <1.1; Warfarin Therap eutic range 2.0 to 3. 0 or 2.5 to 3.5, dep ending upon the indica tions. Lab Interpretation (test Normal code = 12482-2) [facility] WITH [id number] 13:49:10 Test Item Value Reference Range Interpretation Comments WBC (test code = See_Comment [Automated 0390-2) message] The sy stem which generated this result transmitted reference range : 4.30 - 11.10 10*3/?L. The reference range was not used to interpret this result as normal/abnormal . RBC (test code = See_Comment [Automated 069-8) message] The sy stem which generated this result transmitted reference range : 3.93 - 5.25 10*6/?L. The reference range was not used to interpret this result as normal/abnormal . HGB (test code = 12.0 g/dL 11.6-15.0 718-7) HCT (test code = 34.4 % 35.7-45.2 L 4544-3) MCV (test code = 82.7 fL 80.6-95.5 787-2) MCH (test code = 28.8 pg 25.9-32.8 785-6) MCHC (test code = 34.9 g/dL 31.6-35.1 786-4) RDW-SD (test code = 49.1 fL 39.0-49.9 78294-9) RDW-CV (test code = 16.5 % 12.0-15.5 H 788-0) PLT (test code = See_Comment [Automated 697-3) message] The sy stem which generated this result transmitted reference range : 166 - 358 10*3/ ?L. The reference r larisa was not used to interpret this result as normal/abnormal . MPV (test code = 10.7 fL 9.5-12.9 04722-2) NRBC/100 WBC (test See_Comment [Automat ed code = 4732926128) message] The system which generated this result transmitted reference range : 0.0 - 10.0 /100 WBCs. The refer ence range was not u sed to interpret th is result as normal/abnormal . NRBC x10^3 (test code <0.01 See_Comment [Auto mated = 1214528730) message] The s ystem which generated this result transmitted reference range : 10*3/?L. The reference range was not used to interpret this result as normal/abnormal . GRAN MAT (NEUT) % 49.5 % (test code = 770-8) IMM GRAN % (test code 0.30 % = 3557951488) LYMPH % (test code = 40.1 % 736-9) MONO % (test code = 9.0 % 5905-5) EOS % (test code = 1.0 % 713-8) BASO % (test code = 0.1 % 706-2) GRAN MAT x10^3(ANC) 3.31 10*3/uL 1.88-7.09 (test code = 7509420478) IMM GRAN x10^3 (test <0.03 0.00-0.06 code = 4909667236) LYMPH x10^3 (test code 2.69 10*3/uL 1.32-3.29 = 731-0) MONO x10^3 (test code 0.60 10*3/uL 0.33-0.92 = 742-7) EOS x10^3 (test code = 0.07 10*3/uL 0.03-0.39 711-2) BASO x10^3 (test code <0.03 0.01-0.07 = 704-7) Lab Interpretation Abnormal (test code = 35134-5) [facility] 15:40:09 Test Item Value Reference Range Interpretation Comments APPEARANCE (test code = Clear Clear 2134354346) COLOR (test code = Yellow Yellow 9541225944) PH (test code = 4.8-8.0 8065969648) SP GRAVITY (test code = >1.050 1.003-1.035 H 3957339254) GLU U QUAL (test code = Normal Normal 3737178069) BLOOD (test code = Negative Negative 5948685908) KETONES (test code = 5 mg/dL Negative A 3357317218) PROTEIN (test code = Negative Negative 2887-8) UROBILIN (test code = Normal Normal 3539344281) BILIRUBIN (test code = Negative Negative 5895517587) NITRITE (test code = Negative Negative 2231604992) LEUK SHALONDA (test code = Negative Negative 5822751807) RBC/HPF (test code = See_Comment [Autom ated message] 2757212723) The system [employer] generated this result transmitted ref erence range: 0 - 3 HP F. The reference range was not used to int erpret this result as normal/abnormal . WBC/HPF (test code = See_Comment [Autom ated message] 9711659608) The system [employer] generated this result transmitted ref erence range: 0 - 5 HP F. The reference range was not used to int erpret this result as normal/abnormal . BACTERIA (test code = Few Negative A 2221516003) SQ EPITH (test code = HPF 2436345437) Lab Interpretation (test Abnormal code = 78135-2) [facility] HospitalPOSD [id number] 14:54:00 Test Item Value Reference Range Interpretation Comments POCT PREG (test code = 1605) negative On board controls acceptable with yes C Line (test code = 3574) POCT PREG LOT # (test code = 3575) [id number] POCT PREG TEST DATE (test 04/06/2022 code = 3576) Lab Interpretation (test code = Normal 51648-5) [facility] ABDOMEN PELVIS W [id number] 14:51:22 1. ?Cholelithiasis without evidence of acute cholecystitis.2. ?Uterine leiomyoma, probably degenerating, measuring up to 5.9 cm.Degenerating leiomyomata are sometimes associated with abdominal pain. Preliminary Report Dictated by Resident: Demar Morgan MD., have reviewed thisstudy and agree with the abovereport.CT ABDOMEN PELVIS W CONTRAST HISTORY: 44 years-old; Female; complaining of lower abdominal pain for 3days. COMPARISON: None. TECHNIQUE AND FINDINGS: Contiguous axial imaging from the level of the lungbases through the pubic symphysis was performed after the uncompli catedadministration of intravenous Omnipaque contrast. Coronal and sagittalreconstructions were obtained. ?Auto mA and/or iterative reconstructionwere used to reduce radiation dose. FINDINGS: LOWER THORAX: The lung bases are clear. No cardiomegaly. LIVER: No focal hepatic lesions. Normal contour. GALLBLADDER AND BILIARY TREE: No intra or extrahepatic biliary ductaldilation. Multiple small calcified gallbladder stones are seen. SPLEEN: Unremarkable. PANCREAS: No ductal dilatation or masses ADRENAL GLANDS: No adrenal lesions. KIDNEYS: No hydronephrosis, stones, or masses. Homogeneous and symmetricalenhancement. Few small left renal cysts. GI TRACT: No dilation or bowel wall thickening.The appendix is normal.. PERITONEUM AND RETROPERITONEUM: No free air or fluid collection. LYMPH NODES: No intra-abdominal or pelvic lymph node enlargement. PELVIS/BLADDER: Bladder is fully distended with no wall thick ening.Well-defined heterogenous hypoattenuating lesion arising from the leftuterine fundus with central coarse calcification measuring 5.3 x 5.3 x 5.8cm. VESSELS: Unremarkable. BONES AND SOFT TISSUES: No suspicious lytic or sclerotic bony lesions. [facility], Radiant Results Inft User - 11/03/2020 9:[address] ABDOMEN PELVIS W CONTRASTHISTORY: 44 years-old; Female; complaining of lower abdominal pain for 3days.COMPARISON: None.TECHNIQUE AND FINDINGS: Contiguous axial imaging from the level of the lungbases through the pubic symphysis was performed after the uncomplicatedadministration of intravenous Omnipaque contrast. Coronal and sagittalreconstructions were obtained. Auto mA and/or iterative reconstructionwere used to reduce radiation dose.FINDINGS:LOWER THORAX: The lung bases are clear. No cardiomegaly.LIVER: No focal hepatic lesions. Normal contour.GALLBLADDER AND BILIARY TREE: No intra or extrahepatic biliary ductaldilation. Multiple small calcified gallbladder stones are seen.SPLEEN: Unremarkable.PANCREAS: No ductal dilatation or massesADRENAL GLANDS: No adrenal lesions.KIDNEYS: No hydronephrosis, stones, or masses. Homogeneous and symmetricalenhancement. Few small left renal cysts.GI TRACT: No dilation or bowel wall thickening.The appendix is normal..PERITONEUM AND RETROPERITONEUM: No free air or fluid collection.LYMPH NODES: Nointra-abdominal or pelvic lymph node enlargement.PELVIS/BLADDER: Bladder is fully distended with no wall thickening.Well-defined heterogenous hypoattenuating lesion arising from the leftuterine fundus with central coarse calcification measuring 5.3 x 5.3 x 5.8cm.VESSELS: Unremarkable.BONES AND SOFT TISSUES: No suspicious lytic or sclerotic bony lesions.IMPRESSION1. Cholelithiasis without evidence of acute cholecystitis.2. Uterine leiomyoma, probably degenerating, measuring up to 5.9 cm.Degenerating leiomyomata are sometimes associated with abdominal pain.Preliminary Report Dictated by Resident: Demar Hightower MD., have reviewed this study and agree with the abovereport.[facility]. METABOLIC PANEL (56495)2020-11-03 14:21:49 Test Item Value Reference Range Interpretation Comments NA (test code = 139 mmol/L 135-145 0642607602) K (test code = 4.0 mmol/L 3.5-5.0 6526001089) CL (test code = 103 mmol/L 98-108 6803315042) CO2 TOTAL (test code = 25 mmol/L 23-31 6744739717) AGAP (test code = 2-16 2017896234) BUN (test code = 11 mg/dL 7-23 9312202539) GLUCOSE (test code = 131 mg/dL 70-110 H 5984488648) CREATININE (test code = 0.62 mg/dL 0.50-1.04 5126206085) TOTAL BILI (test code = 0.5 mg/dL 0.1-1.2 9828479221) CALCIUM (test code = 10.0 mg/dL 8.6-10.6 4716230793) T PROTEIN (test code = 8.7 g/dL 6.3-8.2 H 2109623030) ALBUMIN (test code = 4.3 g/dL 3.5-5.0 3284947220) ALK PHOS (test code = 61 U/L 34-122 9718795400) ALTv (test code = 10 U/L 5-35 1742-6) AST(SGOT) (test code = 17 U/L 13-40 6376544170) eGFR (test code = mL/min/1.73m2 0271811684) KELVIN (test code = KELVIN) Association of Glomerular Filtration Rate (GFR) and Staging of Kidney Disease* + --+ --+ ------+| GFR (mL/min/1.73 m2) ?| With Kidney Damage ?| ?Without Kidney Damage+ --------+ --------+ +| ?>90 ?| ?Stage one ?| ? Normal ?+ ---+ ---+ -------+| ?60-89 ?| ?Stage two ?| ? Decreased GFR ? + --+ --+ ------+| ?30-59 ?| ?Stage three ?| ? Stage three ? + --+ --+ ------+| ?15-29 ?| ?Stage four ? | ? Stage four ?+ ---+ ---+ -------+| ?<15 (or dialysis) ? ?| ?Stage five ? | ? Stage five ?+ ---+ ---+ -------+ *Each stage assumes the associated GFR level has been in effect for at least three months. ?Stages 1 to 5, with or without kidney disease, indicate chronic kidney disease. Notes: Determination of stages one and two (with eGFR >59mL/min/1.73 m2) requires estimation of kidney damage for at least three months as defined by structural or functional abnormalities of the kidney, manifested by either:Pathological abnormalities or Markers of kidney damage (including abnormalities in the composition of the blood or urine or abnormalities in imaging tests). Lab Interpretation Abnormal (test code = 27117-5) [facility] WITH [id number] 14:09:49 Test Item Value Reference Range Interpretation Comments WBC (test code = See_Comment [Automated 6472-2) message] The sy stem which generated this result transmitted reference range : 4.30 - 11.10 10*3/?L. The reference range was not used to interpret this result as normal/abnormal . RBC (test code = See_Comment [Automated 449-6) message] The sy stem which generated this result transmitted reference range : 3.93 - 5.25 10*6/?L. The reference range was not used to interpret this result as normal/abnormal . HGB (test code = 12.2 g/dL 11.6-15.0 718-7) HCT (test code = 35.1 % 35.7-45.2 L 4544-3) MCV (test code = 81.3 fL 80.6-95.5 787-2) MCH (test code = 28.2 pg 25.9-32.8 785-6) MCHC (test code = 34.8 g/dL 31.6-35.1 786-4) RDW-SD (test code = 45.9 fL 39.0-49.9 38241-7) RDW-CV (test code = 15.5 % 12.0-15.5 788-0) PLT (test code = See_Comment [Automated 777-3) message] The sy stem which generated this result transmitted reference range : 166 - 358 10*3/ ?L. The reference r larisa was not used to interpret this result as normal/abnormal . MPV (test code = 11.1 fL 9.5-12.9 35199-5) NRBC/100 WBC (test See_Comment [Automat ed code = 3520729590) message] The system which generated this result transmitted reference range : 0.0 - 10.0 /100 WBCs. The refer ence range was not u sed to interpret th is result as normal/abnormal . NRBC x10^3 (test code <0.01 See_Comment [Auto mated = 6184430531) message] The s ystem which generated this result transmitted reference range : 10*3/?L. The reference range was not used to interpret this result as normal/abnormal . GRAN MAT (NEUT) % 45.9 % (test code = 770-8) IMM GRAN % (test code 0.30 % = 4331496038) LYMPH % (test code = 44.6 % 736-9) MONO % (test code = 6.6 % 5905-5) EOS % (test code = 2.3 % 713-8) BASO % (test code = 0.3 % 706-2) GRAN MAT x10^3(ANC) 3.01 10*3/uL 1.88-7.09 (test code = 7313616329) IMM GRAN x10^3 (test <0.03 0.00-0.06 code = 5904073991) LYMPH x10^3 (test code 2.92 10*3/uL 1.32-3.29 = 731-0) MONO x10^3 (test code 0.43 10*3/uL 0.33-0.92 = 742-7) EOS x10^3 (test code = 0.15 10*3/uL 0.03-0.39 711-2) BASO x10^3 (test code <0.03 0.01-0.07 = 704-7) Lab Interpretation Abnormal (test code = 74124-3) [facility] HospitalGlucose [id number] 09:59:00 Test Item Value Reference Range Interpretation Comments Glucose Fingerstick 317 mg/dL 70-115 [employer] KELSEY (test code = WGLUC) ORLIN E Sars-CoV-2/FLU A/B RSV [id number] 07:00:00 Test Item Value Reference Range Interpretation Comments Sars-CoV-2/FLU A/B For use under Emergency RSV PCR (test code = Use Authorization (EUA) SARSFLURSVPCR) only. Sars-CoV-2/FLU A/B ical-devices/emergency-u RSV PCR (test code = se-authorizations. SARSFLURSVPCR1.1) Influenza A PCR: Negative by Nucleic Acid (test code = Amplification Influenza A PCR:) Influenza B PCR: Negative by Nucleic Acid (test code = Amplification Influenza B PCR:) RSV PCR Result: (test Negative by Nucleic Acid code = RSV PCR Amplification Result:) SARS-CoV-2 PCR Negative by Nucleic Acid Result: (test code = Amplification SARS-CoV-2 PCR Result:) UA, Urinalysis Rflx Cult/[id number] 06:30:00 Test Item Value Reference Range Interpretation Comments Color,Urine (test code = Yellow Yellow UCOL) Clarity,Urine (test code = Slightly Cloudy Clear A UCLAR) PH,Urine (test code = 6.5 5.5-8.5 UPH.XX) Specific [place],Urine 1.025 1.005-1.030 N (test code = USG) Blood,Urine (test code = Moderate cells/uL Negative A UBLD) Protein,Urine (test code = 30 mg/dL Negative A UPRO) Glucose,Urine (UA) (test Negative mg/dL Negative code = UGLU) Ketones,Urine (test code = Negative mg/dL Negative UKET) Nitrate,Urine (test code = Negative Negative UNIT) Bilirubin,Urine (test code Negative mg/dL Negative = UBIL) Urobilinogen,Urine (test 2.0 mg/dL Negative A code = UURO) Leukocyte Esterase,Urine Large cells/uL Negative A (test code = ULEU) Urine [id number] 06:30:00 Test Item Value Reference Range Interpretation Comments RBC,Urine (test code = URBC.XX) 11-19 /HPF None Seen A WBC,Urine (test code = UWBC.XX) 6-10 /HPF None Seen A Squamous Epithelial Cell,Urine 6-10 /HPF None Seen A (test code = USQEPI.XX) Mucus,Urine (test code = UMUC) Trace /LPF None Seen A HCG, Urine Qual (LAB)2020-03-12 06:30:00 Test Item Value Reference Range Interpretation Comments HCG, Urine, Qual (test code = HCGU) Negative Negative Drug Screen,[id number] 06:30:00 Test Item Value Reference Range Interpretation Comments PCP Phencyclidine Screen,Urine (test Negative Negative code = PCPU) Amphetamine Screen,Urine (test code Negative Negative = AMPU) Methadone Screen,Urine (test code = Negative Negative METHU) Opiate Screen,Urine (test code = Negative Negative UOPIS) Barbituates Screen,Urine (test code Negative Negative = BARBU) Benzodiazepines Screen,Urine (test Negative Negative code = UBENZS) Cocaine Screen,Urine (test code = Negative Negative UCOCS) Cannabinoid Screen,Urine (test code Negative Negative = UTHCS) Propoxyphene Screen, Urine (test Negative Negative code = UPROP) Complete Blood Count Auto [id number] 03:40:00 Test Item Value Reference Range Interpretation Comments White Blood Count (test code = 9.0 x10 3/uL 4.4-10.5 N WBCT) Red Blood Count (test code = 4.33 x10 6/uL 3.75-5.20 N RBC) Hemoglobin (test code = HGBT) 12.5 g/dL 12.2-14.8 N Hematocrit (test code = HCTT) 35.0 % 36.5-44.4 L Mean Corpuscular Volume (test 80.80 fL 80.00-100.00 N code = MCV) Mean Corpuscular Hemoglobin 28.9 pg 27.0-32.5 N (test code = MCH) Mean Corpuscular HGB Conc 35.70 g/dL 32.00-37.50 N (test code = MCHC) RDW Coefficient of Variation 16.5 % 11.5-14.5 H (test code = RDWCV) Platelet Count (test code = 347.0 x10 3/uL 140.0-440.0 N PLTT) Mean Platelet Volume (test 11.3 fL code = MPV) Immature Granulocytes % (Auto) 0.3 % 0.0-5.0 N (test code = IMMGRAN%) Neutrophils % (Auto) (test 67.1 % 36.0-70.0 N code = NE%) Lymphocytes % (Auto) (test 23.1 % 12.0-44.0 N code = LY%) Monocytes % (Auto) (test code 8.4 % 0.0-11.0 N = MO%) Eosinophils % (Auto) (test 0.9 % 0.0-7.0 N code = EO%) Basophils % (Auto) (test code 0.2 % 0.0-2.0 N = BA%) Immature Granulocytes # (Auto) 0.03 x10 3/uL (test code = IMMGRAN#) Neutrophils # (Auto) (test 6.0 x10 3/uL 1.6-7.4 N code = NE#) Lymphocytes # (Auto) (test 2.08 x10 3/uL 0.50-4.60 N code = LY#) Monocytes # (Auto) (test code 0.76 x10 3/uL 0.00-1.20 N = MO#) Eosinophils # (Auto) (test 0.08 x10 3/uL 0.00-0.74 N code = EO#) Basophils # (Auto) (test code 0.02 x10 3/uL 0.00-0.21 N = BA#) nRBC Abs (test code = NRBCA) 0 nRBC Pct (test code = NRBCP) 0 % Comprehensive Metabolic [id number] 03:40:00 Test Item Value Reference Range Interpretation Comments SODIUM (test code = NA) 136.0 mmol/L 136.0-145.0 N Potassium,K (test code = K) 3.9 mmol/L 3.0-5.1 N Chloride (test code = CL) 101 mmol/L 98-107 N Carbon Dioxide (test code = 27 mmol/L 20-31 N CO2) Anion Gap (test code = GAP) 8 mmol/L 5-15 N Blood Urea Nitrogen (test code 7 mg/dL 9-23 L = BUN) Creatinine (test code = CREATT) 0.84 mg/dL 0.55-1.02 N Creatinine Clr Calc Pharmacy 134.02 mL/min (test code = CRCLPHA) Estimated GFR ( Susan > 60 mL/min/1.73m2 (test code = EGFRAA) Estimated GFR (Non Afr Susan > 60 mL/min/1.73m2 (test code = EGFRNAA) BUN/Creatinine Ratio (test code 8 ratio 10-20 L = BCRATIO) Glucose (test code = GLU) 291 mg/dL 74-106 H Osmolality,Calculated (test 290.5 code = OSMOC) Calcium (test code = CA) 9.5 mg/dL 8.3-10.6 N Bilirubin,Total (test code = 0.4 mg/dL 0.2-1.1 N BILIT) Aspartate Amino Transferase 13 U/L 0-34 N (test code = AST) Alanine Aminotransferase (test 14 U/L 10-49 N code = ALT) Total Protein (test code = TP) 7.8 g/dL 5.7-8.2 N Albumin Level (test code = ALB) 4.5 g/dL 3.2-4.8 N Globulin (test code = GLOB) 3.3 mg/dL 2.3-3.5 N Albumin/Globulin Ratio (test 1.4 ratio 0.8-2.0 N code = AGRATIO) Alkaline Phosphatase (test code 80 U/L 46-116 N = ALP) Ethanol [id number] 03:40:00 Test Item Value Reference Range Interpretation Comments Ethanol (test code = ETOH) 3 mg/dL PROTEIN ELECTROPHORESIS, [id number] 15:56:00 Test Item Value Reference Range Interpretation Comments ALBUMIN FRACTION 3.1 g/dL 3.5-5.5 L (BEAKER) (test code = 405) ALPHA 1 FRACTION 0.2 g/dL 0.2-0.4 (BEAKER) (test code = 389) ALPHA 2 FRACTION 0.8 g/dL 0.5-0.9 (BEAKER) (test code = 390) BETA FRACTION (BEAKER) 1.1 g/dL 0.6-1.1 (test code = 392) GAMMA GLOBULIN 1.9 g/dL 0.7-1.7 H FRACTION (BEAKER) (test code = 391) INTERPRETATION-119 Slight decrease in (BEAKER) (test code = albumin. Small 2615) polyclonal elevation of gamma globulins, suggesting a component of chronic inflammation. No monoclonal bands detected. [id number] Viviane Zuluaga MD (BEAKER) (test code = (electronic signature) 7363) PROTEIN TOTAL SERUM, 7.1 gm/dL 6.0-8.3 SPEP (BEAKER) (test code = 2660) POCT-GLUCOSE [id number] 21:51:00 Test Item Value Reference Range Interpretation Comments POC-GLUCOSE METER 108 mg/dL 70-[address] [facility] [address] ([facility]) (test code = HAILEY Montes [facility] 1538) [address] POCT-GLUCOSE [id number] 18:23:00 Test Item Value Reference Range Interpretation Comments POC-GLUCOSE METER 117 mg/dL 70-[address] [facility] [address] ([facility]) (test code = HAILEY Montes [facility] 1538) [address] EEG AWAKE AND [id number] 14:13:00Reason for exam:->new onset seizureShould this be performed at the bedside?->YesDATE OF REPORT: 05/07/2018NAME: Israel GonzalezMRN: [id number] of : 1975ACC: [id number]: [id number] time: 9:17Stop time: 9:39ICD-10: R56.9 CPT Code: 00156 HISTORY: Israel Gonzalez is a 42 y.o. female with history of prior drug overdose, DM, HTN, s/p episode of generalized shaking x 1 minuteMEDICATIONS THAT COULD AFFECT EEG: None TECHNICAL SUMMARY: This is a digital EEG recorded with 32 input channels on a [employer] system, reviewed with bipolar and referential montages using the modified combinatorial system nomenclature. DESCRIPTION OF RECORD: During the maximally alert state, a 9-10 Hz posterior dominant rhythm was seen that was symmetric, reactive to eye opening and well regulated. More anteriorly, low voltage frontocentral beta predominated. Drowsiness was characterized by alpha attenuation and increased frontocentral theta. Stage 2 sleep was reached characterized by symmetricsleep spindles. HV: Hyperventilation was performed for 3 minutes with good effort. No change was seen with HV. PHOTIC STIMULATION: Photic stimulation [...] PhDEpilepsy Fellow Attending note: I reviewed this EEGrecord and I agree with the details of this report.Jessica Jimenez MD, PhDAttending NeurophysiologistCHI [place], [place] POCT-GLUCOSE [id number] 12:34:00 Test Item Value Reference Range Interpretation Comments POC-GLUCOSE METER 129 mg/dL 70-110 H TESTED AT [place] [address] ([facility]) (test code = [facility] 1538) [address] POCT-GLUCOSE [id number] 08:39:00 Test Item Value Reference Range Interpretation Comments POC-GLUCOSE METER 161 mg/dL 70-110 H TESTED AT [place] [address] ([facility]) (test code = [facility] 1538) [address] HEMOGLOBIN [id number] 07:52:00 Test Item Value Reference Range Interpretation Comments HEMOGLOBIN A1C ([facility]) (test code = 5.5 % 4.3-6.1 368) ACETAMINOPHEN [id number] 04:37:00 Test Item Value Reference Range Interpretation Comments ACETAMINOPHEN LEVEL (BEAKER) (test < ug/mL 10.0-30.0 L code = 344) Therapeutic Range: 10.0-30.0 g/mLToxic Levels: >200.0 g/mLPROTHROMBIN [id number] 04:32:00 Test Item Value Reference Range Interpretation Comments PROTIME (BEAKER) (test code = 14.1 seconds 11.7-14.7 759) INR (BEAKER) (test code = 370) 1.1 <=5.9 RECOMMENDED COUMADIN/WARFARIN INR THERAPY RANGESSTANDARD DOSE: 2.0 - 3.0 Includes: PROPHYLAXIS for venous thrombosis, systemic embolization; TREATMENT for venous thrombosis and/or pulmonary embolus.HIGH RISK: Target INR is 2.5-3.5 for patients with mechanical heart valves.BASIC METABOLIC [id number] 04:29:00 Test Item Value Reference Range Interpretation [...] m DATA TO CALCULA TE ESTIMATED GFR. [id number] 04:28:00 Test Item Value Reference Range Interpretation Comments PHOSPHORUS (BEAKER) (test code = 2.4 mg/dL 2.3-4.7 604) [id number] 04:28:00 Test Item Value Reference Range Interpretation Comments MAGNESIUM (BEAKER) (test code = 2.0 mg/dL 1.6-2.6 627) HEPATIC FUNCTION [id number] 04:28:00 Test Item Value Reference Range Interpretation [...] 6-55 347) CBC W/PLT COUNT & AUTO [id number] 04:15:00 Test Item Value Reference Range Interpretation [...] (test code = 2801) RAPID DRUG SCREEN, [id number] 00:32:00 Test Item Value Reference Range Interpretation [...] unconfirmed qualitative test result for the clinical managementof patients in emergency situations. Chain of custody not maintained. Some [id number]-ntr-izquona medications, as well as adulterants, may cause inaccurate results. Clinical correlation should be applied. A more comprehensive drug screen or confirmation of a detected drug may be performed upon request. SCREEN, [id number] 00:28:00 Test Item Value Reference Range Interpretation Comments TEST URINE (BEAKER) (test Negative code = 583) URINALYSIS W/ REFLEX URINE [id number] 00:28:00 Test Item Value Reference Range Interpretation [...] 1584) SOURCE(BEAKER) (test code = 2795) POCT-GLUCOSE [id number] 21:55:00 Test Item Value Reference Range Interpretation Comments POC-GLUCOSE METER 177 mg/dL 70-[address] [facility] 6720 (BEAKER) (test code = HAILEY LIU 2258) [address]"
[2022-11-12] MEDS ORDERED: LORAZEPAM 1 MG TABLET ONE (05:27)
[2022-11-12] MEDS ORDERED: PROMETHAZINE 25 MG TABLET ONE (05:27)
[2022-11-12] MEDS ORDERED: DIPHENHYDRAMINE 25 MG TAB/CAP ONE (05:28)
[2022-11-12] MEDS ORDERED: WATER FOR INJ,STERILE 10 ML ONE (06:20)
[2022-11-12] MEDS ORDERED: ZIPRASIDONE MESYLA 20 MG/VIAL IM ONE (06:20)
[2022-11-12 06:37] LABS: Absolute Lymphocytes (CBC) 2.1 K/uL (0.7-4.9); Hematocrit 33.6 % (36.0-45.0); Lymphocytes % 16.5 % (15.3-44.8); MCV 102.9 fL (80-100); MPV 9.4 fL (7.6-11.3); Platelets 327 thou/uL (152-406); RBC Red Blood Cell Count 3.27 M/uL (3.86-4.86)
[2022-11-12] MEDS ORDERED: NA CHLORIDE 0.9% 1,000 ML ONE (06:37)
[2022-11-12 06:40] LABS: Protime INR 1.1
[2022-11-12 06:52] LABS: ALT/SGPT 17 U/L (13-56); AST/SGOT 7 U/L (15-37); Albumin 3.7 g/dL (3.4-5.0); Alkaline Phosphatase 73 U/L (45-117); BUN Blood Urea Nitrogen 12 mg/dL (7-18); Bicarbonate 22 mEq/L (21-32); Bilirubin Direct 0.2 mg/dL (0-0.2); Bilirubin Indirect, Calculated 0.6 mg/dL (0.2-0.8); Bilirubin Total 0.8 mg/dL (0.2-1.0); Glomerular Filtration Rate 48 ml/min (=/>90); Glucose Level 238 mg/dL (74-106); Potassium 2.7 mEq/L (3.5-5.1); Sodium Level 138 mEq/L (136-145)
--- NOTE | 2022-11-12 07:30 | ER ---
Nurse's Notes [facility] Name: Israel Adorno Age: 47 yrs Sex: Female : 1975 Arrival Date: 11/12/2022 Time: 05:07 Bed 17 Private MD: Diagnosis: Schizophrenia, unspecified Presentation: 11/12 05:09 Chief complaint: [place] police department reports that the patient has not been taking ha1 her Psych medications and is hearing voices and seeing things that are not real. ZEYNEP was provided. 05:09 Ebola Screen: No symptoms or risks identified at this time. Initial Sepsis Screen: Does ha1 the patient meet any 2 criteria? No. Patient's initial sepsis screen is negative. Does the patient have a suspected source of infection? No. Patient's initial sepsis screen is negative. Risk Assessment: Do you want to hurt yourself or someone else? Unable to obtain. Onset of symptoms was November 11, 2022. 05:09 Method Of Arrival: Law Enforcement: Demetria ha1 05:09 Acuity: YENY 3 ha1 Triage Assessment: 05:09 General: Appears comfortable, Behavior is flat. Pain: Unable to use pain scale. FLACC ha1 scale score is 0 out of 10. Neuro: Level of Consciousness is awake, alert, Oriented to person, place. Neuro: Reports hearing voices and seeing things that are not real. . Cardiovascular: Patient's skin is warm and dry. Respiratory: Airway is patent Respiratory effort is even, unlabored, Respiratory pattern is regular, symmetrical. GI: No signs and/or symptoms were reported involving the gastrointestinal system. Derm: Skin is moist, Skin is normal. Musculoskeletal: Circulation, motion, and sensation intact. Range of motion: intact in all extremities. Historical: - Allergies: 05:09 PENICILLINS; ha1 05:09 Vancomycin; ha1 - Home Meds: 05:09 lisinopril Oral [Active]; ha1 13:21 risperidone oral [Active]; db - PMHx: 05:09 Diabetes - NIDDM; Hypertension; Schizophrenia; ha1 - Immunization history:: Adult Immunizations unknown. - Social history:: Smoking status: unknown. - Family history:: not pertinent. Screenin: [facility] ED Fall Risk Assessment (Adult) History of falling in the last 3 months, ha1 including since admission No falls in past 3 months (0 pts) Confusion or Disorientation No (0 pts) Intoxicated or Sedated Yes (3 pts) Impaired Gait No (0 pts) Mobility Assist Device Used No (0 pt) Altered Elimination No (0 pt) Score/Fall Risk Level 0 - 2 = Low Risk Oriented to surroundings, Maintained a safe environment, Educated pt \\T\\ family on fall prevention, incl call for assistance when getting out of bed, Hourly rounding (assess needs \\T\\ fall precautionary measures) done. Abuse screen: Denies threats or abuse. Nutritional screening: No deficits noted. Tuberculosis screening: No symptoms or risk factors identified. Assessment: 05:09 Reassessment: see triage assessment. ha1 05:30 Reassessment: Pt. not taking meds. wanting to leave. ha1 06:15 Reassessment: Family member contact . ha1 06:30 Reassessment: Patient and/or family updated on plan of care and expected duration. Pain ha1 level reassessed. General: Appears comfortable, Behavior is calm, cooperative. 06:30 Reassessment: pt. denies suicidal ideations. States " the voices that I hear are ha1 telling me that I am stupid and make annoying noices. 07:00 Reassessment: Patient appears in no apparent distress at this time. Patient and/or db family updated on plan of care and expected duration. Pain level reassessed. General: Appears in no apparent distress. comfortable, Behavior is calm, cooperative. Pain: Denies pain. Neuro: 08:00 Reassessment: Patient appears in no apparent distress at this time. Patient and/or db family updated on plan of care and expected duration. Pain level reassessed. General: Appears in no apparent distress. comfortable, Behavior is calm, appropriate for age. 08:35 Reassessment: PATIENT PROVIDED BREAKFAST. db 08:43 Reassessment: REPORT GIVEN TO [facility] AT [facility]. db 09:00 Reassessment: REPORT GIVEN TO DANIEL MCGRAW. db 10:00 Reassessment: Patient appears in no apparent distress at this time. Patient and/or db family updated on plan of care and expected duration. Pain level reassessed. Patient is alert, oriented x 3, equal unlabored respirations, skin warm/dry/pink. 11:00 Reassessment: Patient appears in no apparent distress at this time. Patient and/or db family updated on plan of care and expected duration. Pain level reassessed. Patient is alert, oriented x 3, equal unlabored respirations, skin warm/dry/pink. 12:34 Reassessment: PATIENT IS EATING. db 15:26 Reassessment: Patient appears in no apparent distress at this time. Patient and/or db family updated on plan of care and expected duration. Pain level reassessed. Patient is alert, oriented x 3, equal unlabored respirations, skin warm/dry/pink. 16:30 Reassessment: Patient appears in no apparent distress at this time. Patient and/or db family updated on plan of care and expected duration. Pain level reassessed. Patient is alert, oriented x 3, equal unlabored respirations, skin warm/dry/pink. 17:28 Reassessment: PATIENT PROVIDED FOOD TRAY. db 19:21 Reassessment: Patient and/or family updated on plan of care and expected duration. Pain vc1 level reassessed. Patient refuses to sign transfer form. 23:37 Reassessment: Called [facility] Dispatch to ask for Mental Health Officer to call pf1 us to give an ETA to transfer patient to [facility]. Psych: 07:00 [place] Suicide Severity Screening: In the past month, have you wished you were db or wished you could go to sleep and not wake up? Patient responds "No." "In the past month, have you actually had any thoughts of killing yourself?" Patient responds "no." "In your lifetime, have you ever done anything, started to do anything, or prepared to do anything to end your life?" Patient responds "no.". Subjective: Delusions are denied, Hallucinations are auditory. Objective: Patient is cooperative, Speech is normal, Affect is appropriate. Interventions: Patient reassessed during use of restraints. Patient is physically safe. family is at bedside. patient is not SI. Having hallucinations. Patient belongings not taken by previous shift. Safety Checks: Door is open. Visitors are present. Pt denies substance abuse. Commitment: Patient will be an involuntary commitment. Commitment papers completed. Vital Signs: 05:09 BP 169 / 108; Pulse 115; Resp 18 S; Temp 99.1(T); Pulse Ox 99% on R/A; Weight 79.38 kg; ha1 Height 5 ft. 6 in. ; 06:15 BP 179 / 115; Pulse 112; Resp 18 S; Pulse Ox 100% on R/A; ha1 06:30 BP 177 / 100; Pulse 103; Resp 18 S; Pulse Ox 100% on R/A; ha1 07:00 BP 173 / 94; Pulse 84; Resp 20; Temp 98.9(O); Pulse Ox 100% ; db 08:00 BP 130 / 76; Pulse 74; Resp 18; Pulse Ox 99% on R/A; db 10:00 BP 121 / 68; Pulse 80; Resp 16; Pulse Ox 100% on R/A; db 12:00 BP 130 / 80; Pulse 73; Resp 16; Pulse Ox 100% on R/A; db 14:00 BP 160 / 88; Pulse 82; Resp 16; Pulse Ox 100% on R/A; db 15:00 BP 171 / 92; Pulse 87; Resp 16; Pulse Ox 100% ; db 08 03:09 BP 176 / 97; Pulse 98; Resp 18; Pulse Ox 100% on R/A; oe 11/12 05:09 Body Mass Index 28.25 (79.38 kg, 167.64 cm) [facility] ED Course: 11/12 05:09 Patient arrived in ED. rv1 05:09 Patient has correct armband on for positive identification. Bed in low position. Call [facility] light in reach. Side rails up X 1. Adult w/ patient. near nurse station. 05:10 Maxim Serrano MD is Attending Physician. sp4 05:12 Lacie Benavides RN is Primary Nurse. ha1 05:46 Triage completed. ha1 06:20 Inserted saline lock: 22 gauge in right antecubital area, using aseptic technique. pf1 Blood collected. 06:27 Acetaminophen Sent. pf1 06:27 Basic Metabolic Panel Sent. pf1 06:27 CBC with Diff Sent. pf1 06:27 ETOH Level Sent. pf1 06:27 Hepatic Function Sent. pf1 06:27 PT-INR Sent. pf1 06:27 Ptt, Activated Sent. pf1 06:27 Salicylate Sent. pf1 06:42 Acetaminophen Sent. ha1 06:42 Basic Metabolic Panel Sent. ha1 06:42 ETOH Level Sent. ha1 06:42 Hepatic Function Sent. ha1 06:42 Salicylate Sent. ha1 07:20 faxed chart to [facility]. bd 07:27 Attending Physician role handed off by Maxim Serrano MD rn 07:27 Hany Downey MD is Attending Physician. rn 08:50 Primary Nurse role handed off by Lacie Benavides RN db 08:50 Lisa Nowak RN is Primary Nurse. db 20:17 Attending Physician role handed off by Hany Downey MD sp4 20:17 Maxim Serrano MD is Attending Physician. sp4 20:53 contacted [facility] to have effervescent salts compounder commonwealth attorney provide transfer warrant. mb4 21:06 Police [employer] contacted. Requested aid in obtaining transfer warrant. Dispatcher advised mb4 she would forward the information to the effervescent salts compounder and he would call. 22:04 Judge Sharp arrived to complete transfer warrant. Multiple attempts were conducted to mb4 email the documents prior to his arrival. 22:10 [employer] contacted for MH transport. mb4 Administered Medications: 06:15 Drug: Geodon IM 40 mg Route: IM; Site: right vastus lateralis; pf1 07:15 Follow up: Response: No adverse reaction db 06:20 Drug: NS 0.9% IV 1000 ml Route: IV; Rate: 1 bolus; Site: right antecubital; ha1 08:46 Follow up: Response: No adverse reaction; IV Status: Completed infusion db 06:27 Not Given (Patient Refused): diphenhydrAMINE PO 50 mg PO once pf1 06:27 Not Given (Patient Refused): Promethazine PO 50 mg PO once pf1 06:28 Not Given (Patient Refused): LORazepam PO 2 mg PO once pf1 09:25 Drug: Potassium Chloride IV 20 mEq Route: IV; Rate: calculated rate; Site: right db antecubital; 11:30 Follow up: Response: No adverse reaction; IV Status: Completed infusion; IV Intake: db 100ml 14:50 Drug: Potassium PO Effervescent Tablet 50 mEq Route: PO; db 17:27 Follow up: Response: No adverse reaction db 14:50 Drug: Potassium Chloride IV 20 mEq Route: IV; Rate: calculated rate; Site: right db antecubital; 16:55 Follow up: Response: No adverse reaction; IV Status: Completed infusion; IV Intake: db 100ml Medication: 07:00 VIS not applicable for this client. db Intake: 11:30 IV: 100ml; Total: 100ml. db 16:55 IV: 100ml; Total: 200ml. db Outcome: 07:30 ER care complete, transfer ordered by . bryant 11/13 04:49 Patient left the ED. rv1 Signatures: Amanda Reed Roman, MD MD rn Espinosa, Orlando oe Baxter, Mackenzie mb4 Sydney Diggs RN RN vc1 Lacie Benavides RN RN ha1 Lisa Nowak RN RN db Ayesha Hollingsworth RN RN pf1 Ida Ohara rv1 Maxim Serrano MD MD sp4 Corrections: (The following items were deleted from the chart) 11/12 13:23 13:21 Allergies: RISPERIDONE; db db
--- NOTE | 2022-11-12 07:31 | EDPHYS ---
Physician Documentation [facility] Name: Israel Adorno Age: 47 yrs Sex: Female : 1975 Arrival Date: 11/12/2022 Time: 05:07 Bed 17 Private MD: ED Physician Maxim Serrano HPI: 11/12 05:12 This 47 yrs old Black Female presents to ER via Unassigned with complaints of auditory sp4 hallucinations . 07:14 This is a 47-year-old female with history of hypertension, diabetes, schizophrenia. sp4 Patient was brought in by the police secondary to the fact that she has been noncompliant with her medications for past 1 month, patient also has stopped eating at home stop bathing herself then became uncooperative with the family. On arrival patient was uncooperative but not aggressive. In order to accomplish medical testing patient had to be given 40 mg IM Geodon for uncooperative behavior. Patient's family also reported that patient has had auditory and visual hallucinations at home. Patient denied homicidal or suicidal ideation. Historical: - Allergies: 05:09 PENICILLINS; ha1 05:09 Vancomycin; ha1 - Home Meds: 05:09 lisinopril Oral [Active]; ha1 13:21 risperidone oral [Active]; db - PMHx: 05:09 Diabetes - NIDDM; Hypertension; Schizophrenia; ha1 - Immunization history:: Adult Immunizations unknown. - Social history:: Smoking status: unknown. - Family history:: not pertinent. ROS: 07:14 Constitutional: Negative for fever, chills, and weight loss, additional review of sp4 systems is not available secondary to acute psychosis 07:14 All other systems are negative. 07:14 Unable to obtain ROS due to patient being uncooperative. Exam: 07:14 Constitutional: This is a well developed, well nourished patient who is awake, alert, sp4 patient appears to have poor hygiene, poorly cooperative arrived with police in handcuffs secondary to uncooperative behavior at the scene. Head/Face: Normocephalic, atraumatic. Eyes: Pupils equal round and reactive to light, extra-ocular motions intact. Lids and lashes normal. Conjunctiva and sclera are not injected. Cornea within normal limits. Periorbital areas with no swelling, redness, or edema. ENT: Nares patent. No nasal discharge, no septal abnormalities noted. Tympanic membranes are normal and external auditory canals are clear. Oropharynx with no redness, swelling, or masses, exudates, or evidence of obstruction, uvula midline. Mucous membranes moist. Neck: Trachea midline, no thyromegaly or masses palpated, and no cervical lymphadenopathy. Supple, full range of motion without nuchal rigidity, or vertebral point tenderness. Chest/axilla: Normal chest wall appearance and motion. Nontender with no deformity. No lesions are appreciated. Cardiovascular: Regular rate and rhythm with a normal S1 and S2. No gallops, murmurs, or rubs. Normal PMI, no JVD. No pulse deficits. Respiratory: Lungs have equal breath sounds bilaterally, clear to auscultation and percussion. No rales, rhonchi or wheezes noted. No increased work of breathing, no retractions or nasal flaring. Abdomen/GI: Soft, non-tender, with normal bowel sounds. No distension or tympany. No guarding or rebound. No evidence of tenderness throughout. Back: No spinal tenderness. No costovertebral tenderness. Skin: Warm, dry with normal turgor. Normal color with no rashes, no lesions, and no evidence of cellulitis. MS/ Extremity: Pulses equal, no cyanosis. Neurovascular intact. Full, normal range of motion. Neuro: Awake and alert, GCS 15, oriented to person, place, time, and situation. Cranial nerves II-XII grossly intact. Motor strength 5/5 in all extremities. Sensory grossly intact. Psych: Awake, alert, with orientation to person , not oriented to place or time. Appears to have uncooperative behavior becomes agitated on physical exam. Refuses medication. Signs of hypoactive delirium versus mild psychosis 07:14 ECG was reviewed by the Attending Physician. EKG today at 0 6:36 AM reveals sinus sp4 tachycardia at rate of 101, left axis deviation and a right bundle branch block. No ectopy. Otherwise normal EKG Vital Signs: 05:09 BP 169 / 108; Pulse 115; Resp 18 S; Temp 99.1(T); Pulse Ox 99% on R/A; Weight 79.38 kg; ha1 Height 5 ft. 6 in. ; 06:15 BP 179 / 115; Pulse 112; Resp 18 S; Pulse Ox 100% on R/A; ha1 06:30 BP 177 / 100; Pulse 103; Resp 18 S; Pulse Ox 100% on R/A; ha1 07:00 BP 173 / 94; Pulse 84; Resp 20; Temp 98.9(O); Pulse Ox 100% ; db 08:00 BP 130 / 76; Pulse 74; Resp 18; Pulse Ox 99% on R/A; db 10:00 BP 121 / 68; Pulse 80; Resp 16; Pulse Ox 100% on R/A; db 12:00 BP 130 / 80; Pulse 73; Resp 16; Pulse Ox 100% on R/A; db 14:00 BP 160 / 88; Pulse 82; Resp 16; Pulse Ox 100% on R/A; db 15:00 BP 171 / 92; Pulse 87; Resp 16; Pulse Ox 100% ; db 08 03:09 BP 176 / 97; Pulse 98; Resp 18; Pulse Ox 100% on R/A; oe 11/12 05:09 Body Mass Index 28.25 (79.38 kg, 167.64 cm) ha1 MDM: 11/12 05:12 Patient medically screened. sp4 07:14 Data reviewed: vital signs, nurses notes, old medical records, lab test result(s), EKG. sp4 Consideration of Admission/Observation Escalation of care including admission/observation considered. 07:19 Transition of care: After a detail discussion of the patient's case, care is sp4 transferred to Hany Downey MD. ED course: Patient at this time feels better after intramuscular Geodon. Patient refused p.o. Ativan and Benadryl. Patient is given signs of psychosis secondary to schizophrenia and medication noncompliance. Patient warrants hospitalization after medical clearance. . 07:27 Differential Diagnosis schizophrenia. Counseling: I had a detailed discussion with the rn patient and/or guardian regarding: the historical points, exam findings, and any diagnostic results supporting the discharge/admit diagnosis, lab results, the need to transfer to another facility, [facility] does not immediately have the required specialist. 11/13 03:58 ED course: At this time 0 3:58 AM officer of [place] is here to worm picker the patient for a sp4 transfer to psychiatric facility. Patient will be traveling to the [facility]. . 11/12 05:12 Order name: Acetaminophen; Complete Time: 07:03 sp4 11/12 05:12 Order name: Basic Metabolic Panel; Complete Time: 07:03 sp4 11/12 05:12 Order name: CBC with Diff; Complete Time: 07:03 sp4 11/12 05:12 Order name: ETOH Level; Complete Time: 07:03 sp4 11/12 05:12 Order name: Hepatic Function; Complete Time: 07:03 sp4 11/12 05:12 Order name: PT-INR; Complete Time: 07:03 sp4 11/12 05:12 Order name: Ptt, Activated; Complete Time: 07:03 sp4 11/12 05:12 Order name: Salicylate; Complete Time: 07:03 sp4 11/12 05:12 Order name: Urinalysis w/ reflexes; Complete Time: 20:18 sp4 11/12 05:12 Order name: Urine Drug Screen; Complete Time: 20:18 sp4 11/12 05:12 Order name: Test, Urine; Complete Time: 20:18 sp4 11/12 12:05 Order name: Potassium; Complete Time: 13:32 bp 11/12 17:03 Order name: Potassium; Complete Time: 20:18 db 11/12 18:00 Order name: Urine Culture EDMS 11/12 05:12 Order name: EKG; Complete Time: 05:13 sp4 11/12 06:52 Order name: Diet Finger Food; Complete Time: 06:52 ha1 11/13 03:18 Order name: Diet Finger Food; Complete Time: 03:19 vc1 08 05:12 Order name: EKG - Nurse/Tech; Complete Time: 06:42 sp4 11/12 05:12 Order name: IV Saline Lock; Complete Time: 06:27 sp4 11/12 05:12 Order name: Labs collected and sent; Complete Time: 06:27 sp4 11/12 05:12 Order name: Suicide Screening ([place]); Complete Time: 06:42 sp4 EC/08 07:14 Rate is 101 beats/min. Rhythm is regular, Sinus tachycardia. Left axis deviation noted. sp4 OK interval is normal. QRS interval is prolonged. No ST changes noted. Clinical impression: No evidence of ischemia. Interpreted by me. Administered Medications: 06:15 Drug: Geodon IM 40 mg Route: IM; Site: right vastus lateralis; pf1 07:15 Follow up: Response: No adverse reaction db 06:20 Drug: NS 0.9% IV 1000 ml Route: IV; Rate: 1 bolus; Site: right antecubital; ha1 08:46 Follow up: Response: No adverse reaction; IV Status: Completed infusion db 06:27 Not Given (Patient Refused): diphenhydrAMINE PO 50 mg PO once pf1 06:27 Not Given (Patient Refused): Promethazine PO 50 mg PO once pf1 06:28 Not Given (Patient Refused): LORazepam PO 2 mg PO once pf1 09:25 Drug: Potassium Chloride IV 20 mEq Route: IV; Rate: calculated rate; Site: right db antecubital; 11:30 Follow up: Response: No adverse reaction; IV Status: Completed infusion; IV Intake: db 100ml 14:50 Drug: Potassium PO Effervescent Tablet 50 mEq Route: PO; db 17:27 Follow up: Response: No adverse reaction db 14:50 Drug: Potassium Chloride IV 20 mEq Route: IV; Rate: calculated rate; Site: right db antecubital; 16:55 Follow up: Response: No adverse reaction; IV Status: Completed infusion; IV Intake: db 100ml Disposition Summary: 11/12/22 07:30 Transfer Ordered Transfer Location: Psych Facility rn Reason: Higher level of care rn Condition: Stable rn Problem: new rn Symptoms: have improved rn Accepting Physician: (11/13/22 04:49) rv1 Diagnosis - Schizophrenia, unspecified rn Forms: - Medication Reconciliation Form rn - SBAR form rn Signatures: Dispatcher [employer] Hany Saha MD MD rn Peltier, Brian RN RN Lacie Benavides RN RN ha1 Lisa Nowak RN RN Ayesha Shelton RN RN pf1 Ida Ohara rv1 Maxim Serrano MD MD sp4 Corrections: (The following items were deleted from the chart) 13: 13:21 Allergies: RISPERIDONE; db db 11/13 04:01 11/12 07:30 Dr. hurtado sp4 11/13 04:49 04:01 Dr. christy rv1
[2022-11-12] MEDS ORDERED: NA CHLORIDE 0.9% 500 ML ONE (09:31)
[2022-11-12] MEDS ORDERED: KCL 20 MEQ/100 mL IVPB 100 ML IV ONE ×2 (09:31→14:59)
[2022-11-12] MEDS ORDERED: POTASSIUM 25 MEQ EFFERV TAB ONE (14:59)
[2022-11-12 17:50] LABS: Specific Gravity > 1.030 (1.005-1.030)
[2022-11-12 17:55] LABS: Specific Gravity > 1.030 (1.005-1.030); Urine Bacteria 20-50 /HPF (<20); Urine Bilirubin NEGATIVE (Negative); Urine Blood 3+ (OVER) (Negative); Urine Clarity Extremely Turbid (Clear); Urine Color Yellow (Yellow); Urine Glucose 3+ (Negative); Urine Mucus 4+ /HPF (None Seen); Urine Protein 2+ (Negative); Urine RBC 21-50 /HPF (None Seen); Urine Urobilinogen 2+ (Normal); Urine WBC Clump Occasional /HPF (None Seen)
[2022-11-12 17:58] LABS: Barbiturates NEGATIVE (NEGATIVE); Benzodiazepines NEGATIVE (NEGATIVE); Cocaine NEGATIVE (NEGATIVE); METHAMPHETAM NEGATIVE (NEGATIVE); Methadone NEGATIVE (NEGATIVE); Opiates NEGATIVE (NEGATIVE); Phencyclidine NEGATIVE (NEGATIVE); THC Cannibis NEGATIVE (NEGATIVE)
[2022-11-13 05:15] VITALS: TEMP 98.9
[2022-11-13 05:17] VITALS: O2SAT 100
[2022-11-13 05:22] VITALS: BP 176/97
--- NOTE | 2022-11-13 18:13 | EKG ---
Test Date: 2022-11-12 Test Time: 06:36:06 Instrumentation Technologist: ANGELITO MEASUREMENT RESULTS: Intervals: Rate: 101 NJ: 128 QRSD: 136 QT: 406 QTc: 526 [place]: P: 69 NJ: 128 QRS: -43 T: 23 INTERPRETIVE STATEMENTS: Sinus tachycardia Left axis deviation Right bundle branch block Abnormal ECG Compared to ECG 04/23/2020 07:40:16 Sinus rhythm no longer present Electronically Signed On 11-13-22 18:10:52 CDT by Prasanth Robles
== END 2022-11-13 04:49 ==
LOC: ER 05:07
DX: F20.9 Schizophrenia, unspecified (principal); Z91.148 Patient's other noncompliance with medication regimen for other reason; I10 Essential (primary) hypertension; Z88.0 Allergy status to penicillin; Z88.3 Allergy status to other anti-infective agents
CPT/HCPCS: 93005; 87088; 85025; 81001; 87086; 80048; 36415; 81025; 84132 ×2; 85610; 80076; 85730; 80307; 80143; 80179; 82077; Q0169; J3480 ×2; J3486; J7040; J7030